=== PATIENT | male | born 1960 | race Hispanic/Latino ===

== ENCOUNTER 2025-06-21 21:10 | Inpatient (IN) | payer SELFPAY ==
[~2025-06-21] VITALS: Ht 152.6 cm; Wt 87.3 kg
--- NOTE | 2025-06-21 21:36 | EKG ---
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
--- NOTE | 2025-06-21 21:44 | NUR ---
SEPSIS ALERT CALLED OVERHEAD TO ROOM 17; PT WITH TEMP OF 101.6, PULSE OF 139
[2025-06-21 21:50] LABS: IMMATURE GRANULOCYTE ABSOLUTE 0.09 K/uL (0-1); NUCLEATED RED BLOOD CELLS 0.0 % (0.0-0.19); PLATELET COUNT (AUTO) 303 K/uL (130-400); RED BLOOD CELL COUNT(AUTO) 4.03 MIL/uL (4.50-6.20); RED CELL DISTRIBUTION WIDTH 15.1 % (11.0-15.5); WHITE BLOOD COUNT (AUTO) 18.3 K/uL (4.8-10.8)
[2025-06-21] MEDS: [UNRECOGNIZED DRUG - OTHER] IV ONE (21:50)
[2025-06-21 22:00] LABS: CREATININE 1.7 mg/dL (0.5-1.3); GLOMERULAR FILTR. RATE CALC 44.0 mL/min (>90); GLUCOSE,RANDOM 310.0 mg/dL (70-105); SODIUM SERUM 127.0 mmol/L (136-145); UREA NITROGEN, BLOOD 13.0 mg/dL (7-18)
[2025-06-21 22:11] LABS: CREATINE KINASE, TOTAL 41.0 U/L (21-232)
--- NOTE | 2025-06-21 22:28 | ERN ---
ED Note History of Present Illness Stated Complaint: C/O URINARY RETENTION WITH FEVER Chief Complaint: Urinary Retention Time Seen by MD: 21:13 Time Seen by Midlevel: 21:13 Dictation: The patient is a 65-year-old male with a history of diabetes on metformin a who presents to the emergency department with complaints of a burning urination and decreased urine output onset yesterday. Patient reports he had an episode of nonbloody vomiting yesterday. Denies fevers but patient was febrile during triage. Denies any flank pain or abdominal pain. Allergies: Coded Allergies: No Known Allergies (Unverified Allergy, Unknown, 06/21/25) Past Medical History Past Medical History: Diabetes-Type II, Hypertension Surgical History: Other RN Note Reviewed/Agreed w/PFSH: Yes Review of System Dictation Constitutional: Negative for and weight loss positive for fever, chills Eyes: Negative for injury, pain,redness, and discharge ENT: Negative for injury,pain or swelling Cardiovascular: Negative for chest pain, palpitations, and edema Respiratory: Negative for shortness of breath, cough, and wheezing, Abdomen/GI: Negative for abdominal pain, nausea, vomiting, diarrhea, and constipation Back: Negative for injury and pain : Positive for burning urination MS/Extremity: Negative for injury and deformity Skin: Negative for rash, and discoloration Neuro: Negative for headache, weakness, numbness, tingling, and seizure Psych: Negative for suicide ideation, homicidal ideation, and hallucinations Initial Vital Sign VS Vital Signs Date Time Temp Pulse Resp B/P (MAP) Pulse Ox O2 Delivery O2 Flow Rate FiO2 06/21/25 21:12 101.7 139 20 152/68 97 Room Air 06/21/25 22:24 0 21 Physical Exam Dictation Vital Signs reviewed General Appearance: Alert, oriented x 3, no acute distress, well developed, nourished. Head and Face: non-traumatic. Eyes: PERRL, pink conjunctivas, eyelid no trauma, anterior chamber with arcus senilis. Ears: Pinnas intact and no signs of trauma or erythema ear canals clear and no discharge TM no erythema Nose: No discharge, no bleeding. Oropharynx: Mouth normal, tongue pink. pharynx clear,no erythema, tonsils no exudates, no abscesses noted, mucous membrane moist Neck: Supple, non-tender, no thyromegaly, no masses, no JVD, no bruits Breast:Deferred Chest:No tenderness, no crepitus, no paradoxical movement, no retractions Lungs:Clear, well-ventilated, symmetric, no rales, no wheezing, no rhonchi, no stridor, good breath sounds bilaterally Heart: Regular rate, regular rhythm, no murmur, no gallops Vascular: no peripheral edema, Abdomen: Soft, positive bowel sounds, nondistended, no guarding, nontender, no rebound, no masses no hepatomegaly, no splenomegaly, no Marquez's sign, no hernias. Rectal: Deferred Genital: Deferred Neurological: Normal speech, motor function intact, sensory function intact Musculoskeletal: Neck nontender, full range of motion, back nontender, full range of motion, Extremities: nontender, full range of motion Skin: Color pink, dry, no turgor, no rash, no lacerations, no abrasions, no contusions. Lymphatic: Deferred Results (Laboratory/Radiology) Laboratory/Radiology Laboratory Tests Test 06/21/25 21:37 06/21/25 23:12 White Blood Count 18.3 K/uL (4.8-10.8) H Red Blood Count 4.03 MIL/uL (4.50-6.20) L Hemoglobin 10.0 g/dL (14.0-18.0) L Hematocrit 31.4 % (42-54) L Mean Corpuscular Volume 77.9 fL (79-99) L Mean Corpuscular Hemoglobin 24.8 pg (27.0-33.0) L Mean Corpuscular Hemoglobin Concent 31.8 g/dL (32.0-36.0) L Red Cell Distribution Width 15.1 % (11.0-15.5) Platelet Count 303 K/uL (130-400) Mean Platelet Volume 9.6 fL (7.5-10.5) Immature Granulocyte % (Auto) 0.5 % (0-1) Neutrophils (%) (Auto) 80.7 % (40.0-77.0) H Lymphocytes (%) (Auto) 8.8 % (21.0-51.0) L Monocytes (%) (Auto) 8.7 % (3.0-13.0) Eosinophils (%) (Auto) 1.0 % (0.0-8.0) Basophils (%) (Auto) 0.3 % (0.0-5.0) Neutrophils # (Auto) 14.8 K/uL (1.8-7.7) H Lymphocytes # (Auto) 1.6 K/uL (1.0-4.8) Monocytes # (Auto) 1.6 K/uL (0.1-1.0) H Eosinophils # (Auto) 0.19 K/uL (0.00-0.70) Basophils # (Auto) 0.05 K/uL (0.00-0.20) Absolute Immature Granulocyte (auto 0.09 K/uL (0-1) Nucleated Red Blood Cells 0.0 % (0.0-0.19) White Cell Morphology Comment See comments Red Blood Cell Morphology ANISO 1+ Sodium Level 127 mmol/L (136-145) L Potassium Level 4.3 mmol/L (3.5-5.1) Chloride Level 90 mmol/L (101-111) *L Carbon Dioxide Level 24 mmol/L (21-32) Blood Urea Nitrogen 13 mg/dL (7-18) Creatinine 1.7 mg/dL (0.5-1.3) H Glomerular Filtration Rate Calc 44 mL/min (>90) Random Glucose 310 mg/dL (70-105) H Lactic Acid Level 6.1 mmol/L (0.8-2.5) H Total Calcium 9.3 mg/dL (8.5-10.1) Total Creatine Kinase 41 U/L (21-232) Troponin I High Sensitivity 8 ng/L (4-75) Urine Color LIGHT-YELLOW (YELLOW) Urine Appearance CLOUDY (CLEAR) H Urine pH 6.5 (5.0-8.0) Urine Specific [place] 1.011 (1.001-1.031) Urine Protein 10 mg/dL (NEGATIVE) H Urine Glucose (UA) >=1000 mg/dL (NEGATIVE) H Urine Ketones NEGATIVE mg/dL (NEGATIVE) Urine Occult Blood MODERATE (NEGATIVE) H Urine Nitrate NEGATIVE (NEGATIVE) Urine Bilirubin NEGATIVE mg/dL (NEGATIVE) Urine Urobilinogen 0.2 mg/dL (0.2-1.0) Urine Leukocyte Esterase 500 [place]/uL (NEGATIVE) H Urine RBC 26-50 /HPF (0-1) H Urine WBC TNTC /HPF (0-1) H Urine Squamous Epithelial Cells RARE /HPF (0-2) Urine Bacteria None /HPF (None Seen) REASON: sob ORDERING PHYSICIAN: BILL PARADA ON SITE NURSE PROCEDURE: CXR1VW - CHEST 1VW EXAM: CR Chest, 1 View. CLINICAL HISTORY: sob COMPARISON: None provided. FINDINGS: LUNGS: There is no mass, infiltrate, or acute pulmonary abnormality. PLEURAL SPACES: No pleural effusion or pneumothorax. MEDIASTINUM: The cardiomediastinal silhouette is within normal limits. BONES: No acute osseous abnormality. IMPRESSION: No acute cardiopulmonary pathology is evident. /[place] REASON: ABD PAIN, urinary retention ORDERING PHYSICIAN: BILL PARADA ON SITE NURSE PROCEDURE: ABD PEL WO - CT ABDOMEN/PELVIS W/O CONTRAST EXAM: CT Abdomen and Pelvis Without Intravenous Contrast CLINICAL HISTORY: 65 year old male with abdominal pain and urinary retention. TECHNIQUE: Axial computed tomography images of the abdomen and pelvis without intravenous contrast. Dose reduction technique was used including one or more of the following: automated exposure control, adjustment of mA and kV according to patient size, and/or iterative reconstruction. CONTRAST: NONE COMPARISON: None provided. FINDINGS: LUNG BASES: No basilar airspace consolidation or pleural effusion. LIVER: Unremarkable. GALLBLADDER AND BILE DUCTS: Unremarkable. No calcified stone. No ductal dilation. PANCREAS: Unremarkable. SPLEEN: Unremarkable. ADRENAL GLANDS: Unremarkable. KIDNEYS, URETERS, AND BLADDER: Nonspecific bilateral perinephric fat stranding. No hydronephrosis or nephrolithiasis. No ureteral or bladder calculi. No obstructing ureteral stone. STOMACH AND BOWEL: No obstruction. No wall thickening. No CT evidence of colitis or acute diverticulitis. APPENDIX: No CT evidence for appendicitis. PERITONEUM: No free fluid. No free air. LYMPH NODES: No lymphadenopathy. REPRODUCTIVE: Unremarkable as visualized. VASCULATURE: No aortic aneurysm. ABDOMINAL WALL AND SOFT TISSUES: Unremarkable. BONES: Moderate degenerative changes in the lumbar spine. No fracture or suspicious osseous abnormality. IMPRESSION: 1. No acute intra-abdominal or pelvic abnormality related to the clinical history of abdominal pain and urinary retention. /[place] Labs Reviewed?: Yes EKG: (+) rhythm (Sinus tachycardia) EKG Comment: Date:06/21/2025 Time:2129 Ventricular rate:131 [place] interval:155 QRS duration:85 QT/QTc:284/419 EKG interpretation: Sinus tachycardia Reviewed by ED Attending no STEMI ED Course ED Course Orders Procedure Category Date Status Time 12 Lead Ekg Tracing- EKG 06/21/25 Complete Technical 21:21 Cbc With Differential LAB 06/21/25 Complete 21:21 Blood Cult BASIA 06/21/25 In Process 21:21 Urinalysis Profile LAB 06/21/25 Complete 21:21 Acetaminophen 500mg PHA 06/21/25 Complete Tab (Tylenol 500mg T 21:30 0.9%Nacl 1000ml (Ns PHA 06/21/25 Complete 1000ml) 21:30 Creatine Kinase, Total LAB 06/21/25 Complete 21:21 Troponin I High LAB 06/21/25 Complete Sensitivity 21:21 Lactic Acid LAB 06/21/25 Complete 21:21 Ceftriaxone 2gm Vial PHA 06/21/25 Complete (Rocephin 2gm Inj) 21:30 Basic Metabolic Panel LAB 06/21/25 Complete 21:21 Nurse Driven Ann CHHAYA 06/21/25 In Process Removal Pro 21:24 Ct Abdomen/Pelvis W/O CT 06/21/25 Resulted Contrast 21:28 Chest 1vw RAD 06/21/25 Resulted 22:01 Morphine 4mg Syg PHA 06/21/25 Complete (Morphine 4mg Syg) 22:30 Ondansetron 4mg Inj PHA 06/21/25 Complete (Zofran 4mg Inj) 22:30 Culture Urine BASIA 06/21/25 In Process 23:23 Admit Orders ADM 06/21/25 Transmitted 23:44 Edm Admit Bridge Order ADM 06/21/25 Transmitted 23:58 Vital Signs Date Time Temp Pulse Resp B/P (MAP) Pulse Ox O2 Delivery O2 Flow Rate FiO2 06/21/25 23:36 98.6 100 17 106/52 96 Room Air* 0 06/21/25 22:24 116 18 172/69 99 Room Air* 0 06/21/25 21:50 100.9 06/21/25 21:12 101.7 139 20 152/68 97 Room Air Medical Decision Making MDM MDM: The patient is a 65-year-old male with a history of diabetes on metformin a who presents to the emergency department with complaints of a burning urination and decreased urine output onset yesterday. Patient reports he had an episode of nonbloody vomiting yesterday. Denies fevers but patient was febrile during triage. Denies any flank pain or abdominal pain. Patient reports he had problems with urinary retention in the past and they gave him tamsulosin but he stopped taking it. CBC showed leukocytosis, mild normocytic anemia, chemistry showed sodium of 127, chloride of 90, creatinine of 1.7, lactic acid of 6.1, glucose of 310. Urinalysis positive for leukocyte esterase. CT abdomen showed nonspecific bilateral perinephric fat stranding, no hydronephrosis or nephrolithiasis. No acute intra-abdominal pelvic abnormality patient will be admitted for further evaluation and management. Differential diagnosis: UTI, pyelonephritis, sepsis, acute kidney injury, uri nary retention Comorbidities: Diabetes, hypertension, BPH Tests considered and not ordered secondary to shared decision making include: none Previous outside records reviewed: none Risk of complication and/or morbidity or mortality of patient management: The patient meets criteria for admission. Need for emergency major/minor surgery: No There are no social concerns with this patient. I independently interpreted the tests I ordered (labs, urinalysis, etc.). I discussed the case with the hospitalist for admission. Rob NUNN who accepts admission. I discussed the case with the following specialists: none. Historian: pateint. I independently interpreted imaging studies and EKGs that I ordered (US, CT, XR, EKG, etc.). External chart review: none. Medical management and examination interpretation discussions were had by me with other qualified healthcare professionals as indicated for the patient's care. Critical Care Note Critical Time: other (36) Comment(s) Total critical care time was 36 minutes. Excluding time for procedures. Management of critically ill patient with concern for acute decompensation. Management included interpretation of laboratory values and imaging, hemodynamics, time for consultation with consultants and admitting physician. DX & DISP Disposition: Inpatient Decision to Admit Date: Jun 21, 2025 Decision to Admit Time: 23:44 Departure Impression: Primary Impression: Septic shock Additional Impressions: Complicated UTI (urinary tract infection), Leukocytosis, ELENA (acute kidney injury), Elevated lactic acid level, Uncontrolled diabetes mellitus with hyperglycemia, Hypochloremia Condition: Stable Referrals: ERNESTO HEATON MD (PCP) I have reviewed the case, and I agree with, Diagnosis and Plan PARADA,BILL [facility] Jun 21, 2025 22:28
--- NOTE | 2025-06-21 22:57 | HMCIMG ---
EXAM: CR Chest, 1 View. CLINICAL HISTORY: sob COMPARISON: None provided. FINDINGS: LUNGS: There is no mass, infiltrate, or acute pulmonary abnormality. PLEURAL SPACES: No pleural effusion or pneumothorax. MEDIASTINUM: The cardiomediastinal silhouette is within normal limits. BONES: No acute osseous abnormality. IMPRESSION: No acute cardiopulmonary pathology is evident. /[place]
--- NOTE | 2025-06-21 23:15 | HMCIMG ---
EXAM: CT Abdomen and Pelvis Without Intravenous Contrast CLINICAL HISTORY: 65 year old male with abdominal pain and urinary retention. TECHNIQUE: Axial computed tomography images of the abdomen and pelvis without intravenous contrast. Dose reduction technique was used including one or more of the following: automated exposure control, adjustment of mA and kV according to patient size, and/or iterative reconstruction. CONTRAST: NONE COMPARISON: None provided. FINDINGS: LUNG BASES: No basilar airspace consolidation or pleural effusion. LIVER: Unremarkable. GALLBLADDER AND BILE DUCTS: Unremarkable. No calcified stone. No ductal dilation. PANCREAS: Unremarkable. SPLEEN: Unremarkable. ADRENAL GLANDS: Unremarkable. KIDNEYS, URETERS, AND BLADDER: Nonspecific bilateral perinephric fat stranding. No hydronephrosis or nephrolithiasis. No ureteral or bladder calculi. No obstructing ureteral stone. STOMACH AND BOWEL: No obstruction. No wall thickening. No CT evidence of colitis or acute diverticulitis. APPENDIX: No CT evidence for appendicitis. PERITONEUM: No free fluid. No free air. LYMPH NODES: No lymphadenopathy. REPRODUCTIVE: Unremarkable as visualized. VASCULATURE: No aortic aneurysm. ABDOMINAL WALL AND SOFT TISSUES: Unremarkable. BONES: Moderate degenerative changes in the lumbar spine. No fracture or suspicious osseous abnormality. IMPRESSION: 1. No acute intra-abdominal or pelvic abnormality related to the clinical history of abdominal pain and urinary retention. /[place]
[2025-06-21 23:22] LABS: APPEARANCE,URINE CLOUDY (CLEAR); GLUCOSE, URINE (UA) >=1000 mg/dL (NEGATIVE); LEUKOCYTE ESTERASE ,URINE 500 Leu/uL (NEGATIVE); NITRATE,URINE NEGATIVE (NEGATIVE); OCCULT BLOOD,URINE MODERATE (NEGATIVE)
[2025-06-21 23:23] LABS: ADD UA MICROSCOPIC YES
[2025-06-21 23:24] LABS: SQUAMOUS EPITHELIAL CELL,UR RARE /HPF (0-2)
--- NOTE | 2025-06-21 23:45 | HP ---
History of Present Illness Reason for Visit: fever History of Present Illness Mr. Mendez is a 65-year-old male that was seen and examined today on 06/21/2025. Patient is a good historian of personal health Patient states that he came to the emergency department with a chief complaint of urinary retention. Onset was 06/20/2025. Location is genital. Duration is on and off. Character is described as, "like it would hurt when I pee and also I would only get little drops. "There was no alleviating factors. Symptoms are aggravated with voiding. Patient denies any associated chest pain or shortness and breath. Today in the emergency department WBCs 18.3, left shift neutrophils 80.7%, creatinine 1.7, glucose 310 mg/dL, urinalysis positive for leukocyte esterase and WBCs too many to count per high-powered microscopy field. Add itionally patient presented with a temperature of 101.7, heart rate 139, WBCs 18.3 and identified source of infection being urine. Patient met clinical sepsis criteria. Past Medical History ADDITIONAL PAST MEDICAL HISTORY: [Diabetes mellitius type2, hypertension, hyperlipidemia] SOCIAL HISTORY: [Negative for smoking. Patient drinks once a week usually three beers that are 12 oz each. Patient denies drug use. Patient lives with his , Fany Mendez. Patient is typically independent of all his ADLs. Patient denies difficulty pain is bills.] SURGICAL HISTORY: [Left renal lithotripsy, bilateral eye surgery] Review of Systems General: No Fever, No Chills, No Night Sweats, No Fatigue, No Malaise, No Appetite, No Other HEENT: No Head Aches, No Visual Changes, No Eye Pain, No Ear Pain, No Dysphasia, No Sinus Congestion, No Post Nasal Drip, No Sore Throat, No Other Pulmonary: No Dyspnea, No Cough, No Pleuritic Chest Pain, No Other Cardiovascular: No: Chest Pain, Palpitations, Orthopnea, Paroxysmal Noc. Dyspnea, Edema, Lt Headedness, Other Gastrointestinal: No: Nausea, Vomiting, Abdominal Pain, Diarrhea, Constipation, Melena, Hematochezia, Other Genitourinary: Dysuria; No Frequency, No Incontinence, No Hematuria; Retention; No Other Musculoskeletal: No: other, neck pain, shoulder pain, arm pain, back pain, hand pain, leg pain, foot pain Skin: No Urticaria, No Rash, No Other Neurological: No: Weakness, Numbness, Incoordination, Change in speech, Confusion, Seizures, Other Allergies: Coded Allergies: No Known Allergies (Unverified Allergy, Unknown, 06/21/25) Exam Vital Signs Vital Signs Date Time Temp Pulse Resp B/P (MAP) Pulse Ox O2 Delivery O2 Flow Rate FiO2 06/21/25 23:36 98.6 100 17 106/52 96 Room Air* 0 21 General Appearance: Alert, Oriented X3, Cooperative, mild distress HEENT: Atraumatic, EOMI Respiratory: Clear to auscultation, Normal air movement, NL respiratory effort Cardiovascular: Regular rate, Regular rhythm, Normal S1, Normal S2 Abdominal: Normal bowel sounds, Soft, No tenderness Extremities: No edema Skin: No significant lesion Neuro: Normal gait, Normal speech, Strength at 5/5 X4 ext, Sensation intact, Cranial nerves 3-12 NL Psych/Mental Status: Mental status NL, Mood NL, Thoughts/Content NL Assessment/Plan ASSESSMENT: [ Sepsis, POA Urinary tract infection, POA Leukocytosis, POA Uncontrolled Diabetes mellitius type2, POA ELENA versus CKD, POA Lactic acidosis, POA Hypertension Hyperlipidemia] PLAN: [ Admit patient to medical floor as inpatient status. Place patient on telemetry monitoring. Sepsis, leukocytosis, lactic acidosis, urinary tract infection: Patient received fluid resuscitation with 0.9% NS 30 mL/kg Empiric antibiotic therapy with Zosyn. Check procalcitonin, follow up with the results Check blood culture, follow up with the results Check urine culture, follow up with the results Repeat patient's lactic acid in a.m. As-needed Tylenol for fever Diabetes mellitus type 2: Check hemoglobin A1c in a.m. Glucometer checks a.c. and HS 1800 ADA diet Humulin R sliding scale Acute kidney injury: Lactated Ringer's at 75 mL/HR IV fluid maintenance therapy Calculate FENA Check urine sodium, creatinine, osmolality Avoid nephrotoxic agents when possible Renally dose all medications when possible Consider consulting Nephrology service if any worsening renal function or evidence of ATN. Monitor patient's labs. Weight patient daily. Monitor intake and output. Hypertension, hyperlipidemia: Consider resuming home medications once they have been reconciled. At time of admission home medications has been reconciled. For now: Hydralazine 10 mg IV every 4 hours for systolic blood pressure greater than 160 mmHg Atorvastatin 40 mg by mouth once daily GI prophylaxis, Protonix DVT prophylaxis, heparin ADVANCED CARE PLANNING 1. Which of the following were discussed? Hospice Care - Yes Therapeutic options - yes Advance Directives - Yes - patient states he does not have any advance directives in place at this time, however his Fany can make decisions for him if he becomes unable Other discussions - patient wishes to remain a full code at this time 2. Discussed with who? Patient 3. Voluntary nature of this service was explained to the patient? Yes 4. Amount of time spent - ___16 minutes____ 5. Reviewed by Physician? (if this service was performed by NPP) Yes This document was generated in part using voice recognition software, occasional wrong word or sound alike substitutions may have occurred due to the inherent limitations of voice recognition software. Read the chart carefully and recognize using context, where the substitutions have occurred. Although every effort was made to edit the content, weights and measures inspector and typing errors may occur ATTESTATION BY PHYSICIAN I have seen and examined the patient. I reviewed the documentation, medical decision making, and treatment plan as noted by the mid-level provider above. I agree with the findings and plan of care.] [facility] Jun 21, 2025 23:45
[2025-06-22] MEDS ORDERED: LACTULOSE 20 GM/30 ML UDCUP PO PRN (01:30)
[2025-06-22] MEDS: LACTATED RINGERS 1000ML 1,000 ML IV SCH (02:25)
[2025-06-22] MEDS: ZOSYN 3.375GM +NS 50ML IV SCH (03:06)
[2025-06-22 06:38] LABS: IMMATURE GRANULOCYTE ABSOLUTE 0.12 K/uL (0-1); NUCLEATED RED BLOOD CELLS 0.0 % (0.0-0.19); PLATELET COUNT (AUTO) 255 K/uL (130-400); RED BLOOD CELL COUNT(AUTO) 3.80 MIL/uL (4.50-6.20); RED CELL DISTRIBUTION WIDTH 15.2 % (11.0-15.5); WHITE BLOOD COUNT (AUTO) 16.4 K/uL (4.8-10.8)
[2025-06-22 06:46] LABS: CREATININE 1.5 mg/dL (0.5-1.3); GLOMERULAR FILTR. RATE CALC 51.0 mL/min (>90); GLUCOSE,RANDOM 164.0 mg/dL (70-105); PHOSPHORUS 3.1 mg/dL (2.5-4.9); SODIUM SERUM 130.0 mmol/L (136-145); UREA NITROGEN, BLOOD 12.0 mg/dL (7-18)
[2025-06-22 07:11] LABS: CREATININE,URINE RANDOM 75.79 mg/dL (30-135)
[2025-06-22] MEDS ORDERED: LISI20TA24 PO (08:53)
[2025-06-22] MEDS ORDERED: METF-445 PO (08:53)
[2025-06-22] MEDS ORDERED: TAMS-55 PO (08:55)
[2025-06-22] MEDS ORDERED: PRAV40TA62 PO (08:55)
[2025-06-22] MEDS ORDERED: AMLO-258 PO (08:55)
[2025-06-22] MEDS ORDERED: LINA5TAB PO (08:55)
[2025-06-22] MEDS: MAGNESIUM 2GM PREMIX 50ML 50 ML IV SCH (12:02)
--- NOTE | 2025-06-22 12:45 | PN ---
[facility] PROGRESS NOTE Date of Service: Jun 22, 2025 Time of Service: 12:33 SUBJECTIVE: [ ] Patient states that he came to the emergency department with a chief complaint of urinary retention. Onset was 06/20/2025. Location is genital. Duration is on and off. Character is described as, "like it would hurt when I pee and also I would only get little drops. "There was no alleviating factors. Symptoms are aggravated with voiding. Patient denies any associated chest pain or shortness and breath. Today in the emergency department WBCs 18.3, left shift neutrophils 80.7%, creatinine 1.7, glucose 310 mg/dL, urinalysis positive for leukocyte esterase and WBCs too many to count per high-powered microscopy field. Additionally patient presented with a temperature of 101.7, heart rate 139, WBCs 18.3 and identified source of infection being urine. Patient met clinical sepsis criteria. 06/22/25 patient remains in ED 17 T-max 99.7. Continues on broad-spectrum antibiotic. Culture blood cultures in process. Patient denied chest pain or shortness for breath. We will replace electrolytes as per protocol. REVIEW OF SYSTEMS CONSTITUTIONAL: Denies fevers, chills, or night sweats. No unintentional weight loss reported. NEUROLOGICAL: Denies headache, amaurosis fugax, motor weakness, sensory deficit, vertigo/spinning sensation, gait abnormalities, or tremors. ENT: No hearing loss, otalgia, otorrhea, rhinitis, rhinorrhea, hoarseness, or sore throat. CARDIOVASCULAR: Denies any exertional angina, dyspnea on exertion, orthopnea, paroxysmal nocturnal dyspnea, palpitations, life-threatening arrhythmias, claudication. PULMONARY: Denies any shortness of breath, cough, phlegm/sputum, hemoptysis, pleuritic chest pain. SLEEP: Denies morning headaches, daytime somnolence or napping. Denies difficulty falling asleep, staying asleep, waking from sleep. Denies knowledge of snoring. GASTROINTESTINAL: Denies any type of dysphagia to either liquids or solids. Denies nausea, vomiting, pyrosis, early satiety, abdominal pain, diarrhea, constipation, or changes in stool consistency or caliber. Denies coffee-ground emesis, hematemesis, hematochezia, or melanotic stools. GENITOURINARY: Denies frequency, urgency, nocturia, hematuria or incontinence (Storage/Irritative symptoms.) Low urinary stream, straining to void, urinary intermittency or hesitancy, splitting of the voiding stream, terminal dribbling. ENDOCRINOLOGIC: Denies polyuria, polydipsia, polyphagia or heat/cold intolerances. HEMATOLOGIC: Denies thrombophilia/previous clots, or coagulopathy/bleeding disorders. ONCOLOGIC: Denies personal history of malignancy. DERMATOLOGIC: Denies rashes or pruritus. PSYCHIATRIC: Denies any suicidal or homicidal ideation. Denies hallucinations. PHYSICAL EXAM GENERAL APPEARANCE: The patient is awake, alert, and oriented, in no acute cardiopulmonary distress. NEUROLOGICAL: Cranial nerves II-XII grossly intact. Motor is 5/5 in bilateral upper and lower extremities proximal to distal. No sensory deficits. HEENT: Face is symmetric. Pupils are equal and reactive. Extraocular movements are intact. NECK: Supple. No JVD. No thyromegaly. No submental, submandibular, pre- /postauricular, occipital or supraclavicular lymphadenopathy. CHEST: Normal chest expansion. No Telemetry. LUNGS: Absence of any rales, rhonchi or any wheezing. CARDIOVASCULAR: Regular. S1 and S2 normal. No appreciable rubs, murmurs or gallops. ABDOMEN: Soft, nontender, and nondistended. There is no rebound, voluntary guarding, or rigidity. : Deferred. No Ann. EXTREMITIES: Non-edematous and not cyanotic. No clubbing. Good capillary refill. SKIN: No skin breakdown. Vital Signs (last 8hr) Date Time Temp Pulse Resp B/P (MAP) Pulse Ox O2 Delivery O2 Flow Rate FiO2 06/22/25 12:13 99.0 97 15 122/61 97 Room Air* 0 21 06/22/25 08:35 99.7 06/22/25 07:46 99.7 105 18 140/65 98 Room Air* 0 21 06/22/25 04:40 98.8 100 18 124/53 97 Room Air* 0 21 LABS: Laboratory: Test 06/22/25 11:24 06/22/25 06:10 06/22/25 01:43 06/21/25 23:12 Range/Units Whole Blood Glucose 166 H 70-110 MG/DL White Blood Count 16.4 H 4.8-10.8 K/uL Red Blood Count 3.80 L 4.50-6.20 MIL/uL Hemoglobin 9.3 L 14.0-18.0 g/dL Hematocrit 29.4 L 42-54 % Mean Corpuscular Volume 77.4 L 79-99 fL Mean Corpuscular Hemoglobin 24.5 L 27.0-33.0 pg Mean Corpuscular Hemoglobin Concent 31.6 L 32.0-36.0 g/dL Red Cell Distribution Width 15.2 11.0-15.5 % Platelet Count 255 130-400 K/uL Mean Platelet Volume 9.8 7.5-10.5 fL Immature Granulocyte % (Auto) 0.7 0-1 % Neutrophils (%) (Auto) 84.0 H 40.0-77.0 % Lymphocytes (%) (Auto) 6.2 L 21.0-51.0 % Monocytes (%) (Auto) 8.6 3.0-13.0 % Eosinophils (%) (Auto) 0.3 0.0-8.0 % Basophils (%) (Auto) 0.2 0.0-5.0 % Neutrophils # (Auto) 13.7 H 1.8-7.7 K/uL Lymphocytes # (Auto) 1.0 1.0-4.8 K/uL Monocytes # (Auto) 1.4 H 0.1-1.0 K/uL Eosinophils # (Auto) 0.05 0.00-0.70 K/uL Basophils # (Auto) 0.04 0.00-0.20 K/uL Absolute Immature Granulocyte (auto 0.12 0-1 K/uL Nucleated Red Blood Cells 0.0 0.0-0.19 % Sodium Level 130 L 136-145 mmol/L Potassium Level 4.4 3.5-5.1 mmol/L Chloride Level 97 L 101-111 mmol/L Carbon Dioxide Level 28 21-32 mmol/L Blood Urea Nitrogen 12 7-18 mg/dL Creatinine 1.5 H 0.5-1.3 mg/dL Glomerular Filtration Rate Calc 51 >90 mL/min Random Glucose 164 H 70-105 mg/dL Hemoglobin A1c 7.1 H 4.0-6.0 % Estimated Average Glucose (eAG) 157 H 70-126 mg/dL Lactic Acid Level 1.2 0.8-2.5 mmol/L Total Calcium 8.4 L 8.5-10.1 mg/dL Phosphorus Level 3.1 2.5-4.9 mg/dL Magnesium Level 1.40 L 1.80-2.40 mg/dL Procalcitonin 0.17 0.05-0.5 ng/mL Urine Color LIGHT-YELLOW YELLOW Urine Appearance CLOUDY H CLEAR Urine pH 6.5 5.0-8.0 Urine Specific [place] 1.011 1.001-1.031 Urine Protein 10 H NEGATIVE mg/dL Urine Glucose (UA) >=1000 H NEGATIVE mg/dL Urine Ketones NEGATIVE NEGATIVE mg/dL Urine Occult Blood MODERATE H NEGATIVE Urine Nitrate NEGATIVE NEGATIVE Urine Bilirubin NEGATIVE NEGATIVE mg/dL Urine Urobilinogen 0.2 0.2-1.0 mg/dL Urine Leukocyte Esterase 500 H NEGATIVE [place]/uL Urine RBC 26-50 H 0-1 /HPF Urine WBC TNTC H 0-1 /HPF Urine Squamous Epithelial Cells RARE 0-2 /HPF Urine Bacteria None None Seen /HPF Urine Random Creatinine 75.79 30-135 mg/dL Urine Random Sodium 75 40-220 mmol/l Test 06/21/25 21:37 Range/Units White Cell Morphology Comment See comments Red Blood Cell Morphology ANISO 1+ Total Creatine Kinase 41 21-232 U/L Troponin I High Sensitivity 8 4-75 ng/L Current Medications Medications (Trade) Dose Ordered Sig/Peggy Route PRN Reason Start Time Stop Time Status Last Admin Dose Admin Acetaminophen (TYLenol 325MG TAB) 650 mg Q6H PRN PO TEMPERATURE GREATER THAN 101.5 06/22/25 01:30 07/22/25 01:29 06/22/25 08:35 650 MG Atorvastatin Calcium (LIPItor 40MG) 40 mg HS PO 06/22/25 21:00 07/22/25 20:59 Heparin Sodium (Porcine) (HEParin 5,000 UNIT VIAL) 5,000 unit BID SQ 06/22/25 09:00 07/22/25 08:59 06/22/25 08:37 5,000 UNIT Hydralazine HCl (APRESOLine 20MG INJ) 10 mg Q6H PRN IV For:SBP above 160;DBP above 90 06/22/25 01:30 07/22/25 01:29 Insulin Human Regular (humuLIN R 100 UNIT/ML 3ML) INSULIN SLIDING SCAL... ACHS SQ 06/22/25 07:30 07/22/25 07:29 Lactated Ringer's 1,000 ml @ 75 mls/hr [id number] IV 06/22/25 01:30 07/22/25 01:29 06/22/25 02:25 75 MLS/HR Lactulose (Constulose 20gm/ 30ml Udcup) 20 gm BID PRN PO CONSTIPATION 06/22/25 01:30 07/22/25 01:29 Magnesium Sulfate 50 ml @ 0 mls/hr PROTOCOL IV 06/22/25 11:30 07/22/25 11:29 06/22/25 12:02 24 MLS/HR Morphine Sulfate (morPHINE 4MG SYG) 2 mg Q4H PRN IVP SEVERE PAIN (7-10) 06/22/25 01:30 06/29/25 01:29 Ondansetron HCl (zoFRAN 4MG INJ) 4 mg Q6H PRN IV NAUSEA/VOMITING 06/22/25 01:30 07/22/25 01:29 Pantoprazole Sodium (PROTonix 40MG TAB) 40 mg DAILY PO 06/22/25 09:00 07/22/25 08:59 06/22/25 08:35 40 MG Piperacillin Sod/ Tazobactam Sod (Zosyn 3.375gm+NS 50ml) 3.375 gm Q8H IV 06/22/25 03:00 07/02/25 02:59 06/22/25 11:58 3.375 GM DIAGNOSTICS / RADIOLOGY: [ ] ASSESSMENT: Sepsis, POA Urinary tract infection, POA Leukocytosis, POA Uncontrolled Diabetes mellitius type2, POA ELENA versus CKD, POA Electrolyte derangement hyponatremia. Hypomagnesemia Lactic acidosis, POA Hypertension Hyperlipidemia] PLAN: [ ] Admit medical floor remain in ED 17 Sepsis, leukocytosis, lactic acidosis, urinary tract infection: IV fluids 75 mL/hour Antibiotics Empiric antibiotic therapy with Zosyn. Microbiology urine culture blood cultures in process Flomax 0.4 mg p.o. daily Diabetes mellitus type 2: A1c 7.1 Glucometer checks a.c. and HS 1800 ADA diet Humulin R sliding scale Acute kidney injury: Improving Lactated Ringer's at 75 mL/HR IV fluid maintenance therapy Avoid NSAIDs renal dose medication strict I&Os Home medications reconciled Hypertension, hyperlipidemia: Hydralazine 10 mg IV every 4 hours for systolic blood pressure greater than 160 mmHg Atorvastatin 40 mg by mouth once daily GI prophylaxis, Protonix DVT prophylaxis, heparin ATTESTATION BY PHYSICIAN I have seen and examined the patient. I reviewed the documentation, medical decision making, and treatment plan as noted by the mid-level provider above. I agree with the findings and plan of care. LIANNA GILLIAM MD, ELIZABETH NP Jun 22, 2025 12:45
[2025-06-22] MEDS ORDERED: MAGNESIUM 2GM PREMIX 50ML 50 ML IV SCH (13:00)
[2025-06-22] MEDS ORDERED: PoTASSium chl 10% ELIXIR 20MEQ 20 MEQ/15 ML UDCUP PO PRN (13:00)
[2025-06-22] MEDS ORDERED: MAGNESIUM 2GM PREMIX 50ML 50 ML IV PRN (13:00)
--- NOTE | 2025-06-22 15:18 | NUR ---
DcP; HOME Sw met pt and his Fany Mendez [phone]. Pt works as [employer], drives and remains independent of all his ADLS. uses no DME, HH or HD services. PCP is Daniel Lopez at [facility] for medical care and meds. pt and deny dc needs and will return home at ar Addendum: 06/22/25 at 1524 by MALIK LOPEZ Amended: Links added.
[2025-06-22 20:00] VITALS: BP 118/54; PULSE 105; RESP 20; TEMP 100.3; O2SAT 99
[2025-06-22 20:03] VITALS: TEMP 99.1
[2025-06-23] VITALS (7 sets, daily range): BP systolic 118–151; BP diastolic 46–75; PULSE 88–106; RESP 16–20; TEMP 98.5–100.4; O2SAT 93–99
[2025-06-23 04:52] LABS: IMMATURE GRANULOCYTE ABSOLUTE 0.06 K/uL (0-1); NUCLEATED RED BLOOD CELLS 0.0 % (0.0-0.19); PLATELET COUNT (AUTO) 256 K/uL (130-400); RED BLOOD CELL COUNT(AUTO) 3.55 MIL/uL (4.50-6.20); RED CELL DISTRIBUTION WIDTH 15.4 % (11.0-15.5); WHITE BLOOD COUNT (AUTO) 13.6 K/uL (4.8-10.8)
[2025-06-23 05:21] LABS: ASPARTATE AMINOTRANSFERASE 21.0 U/L (10-37); CREATININE 1.3 mg/dL (0.5-1.3); GLOMERULAR FILTR. RATE CALC 60.0 mL/min (>90); GLUCOSE,RANDOM 144.0 mg/dL (70-105); SODIUM SERUM 134.0 mmol/L (136-145); TOTAL PROTEIN, SERUM 6.6 g/dL (6.0-8.3); UREA NITROGEN, BLOOD 9.0 mg/dL (7-18)
[2025-06-23] MEDS ORDERED: NON-FORMULARY MEDICATION 1 EACH (Pravastatin Sodium 1 TAB) PO SCH (09:00)
[2025-06-23] MEDS: amLODIPine 5 MG TAB PO SCH (10:12)
[2025-06-23] MEDS: LISINOPRIL 20 MG TABLET PO SCH (10:12)
--- NOTE | 2025-06-23 10:15 | PN ---
[facility] PROGRESS NOTE Date of Service: Jun 23, 2025 Time of Service: 10:12 SUBJECTIVE: [ ] Patient states that he came to the emergency department with a chief complaint of urinary retention. Onset was 06/20/2025. Location is genital. Duration is on and off. Character is described as, "like it would hurt when I pee and also I would only get little drops. "There was no alleviating factors. Symptoms are aggravated with voiding. Patient denies any associated chest pain or shortness and breath. Today in the emergency department WBCs 18.3, left shift neutrophils 80.7%, creatinine 1.7, glucose 310 mg/dL, urinalysis positive for leukocyte esterase and WBCs too many to count per high-powered microscopy field. Additionally patient presented with a temperature of 101.7, heart rate 139, WBCs 18.3 and identified source of infection being urine. Patient met clinical sepsis criteria. 06/22/25 patient remains in ED 17 T-max 99.7. Continues on broad-spectrum antibiotic. Culture blood cultures in process. Patient denied chest pain or shortness for breath. We will replace electrolytes as per protocol. 06/23/25 patient was seen earlier patient remain in ED 17. T-max 99.3. Continues on Zosyn IV ID on board. Waiting for final cultures. REVIEW OF SYSTEMS CONSTITUTIONAL: Denies fevers, chills, or night sweats. No unintentional weight loss reported. NEUROLOGICAL: Denies headache, amaurosis fugax, motor weakness, sensory deficit, vertigo/spinning sensation, gait abnormalities, or tremors. ENT: No hearing loss, otalgia, otorrhea, rhinitis, rhinorrhea, hoarseness, or sore throat. CARDIOVASCULAR: Denies any exertional angina, dyspnea on exertion, orthopnea, paroxysmal nocturnal dyspnea, palpitations, life-threatening arrhythmias, claudication. PULMONARY: Denies any shortness of breath, cough, phlegm/sputum, hemoptysis, pleuritic chest pain. SLEEP: Denies morning headaches, daytime somnolence or napping. Denies difficulty falling asleep, staying asleep, waking from sleep. Denies knowledge of snoring. GASTROINTESTINAL: Denies any type of dysphagia to either liquids or solids. Denies nausea, vomiting, pyrosis, early satiety, abdominal pain, diarrhea, constipation, or changes in stool consistency or caliber. Denies coffee-ground emesis, hematemesis, hematochezia, or melanotic stools. GENITOURINARY: Denies frequency, urgency, nocturia, hematuria or incontinence (Storage/Irritative symptoms.) Low urinary stream, straining to void, urinary intermittency or hesitancy, splitting of the voiding stream, terminal dribbling. ENDOCRINOLOGIC: Denies polyuria, polydipsia, polyphagia or heat/cold intolerances. HEMATOLOGIC: Denies thrombophilia/previous clots, or coagulopathy/bleeding disorders. ONCOLOGIC: Denies personal history of malignancy. DERMATOLOGIC: Denies rashes or pruritus. PSYCHIATRIC: Denies any suicidal or homicidal ideation. Denies hallucinations. PHYSICAL EXAM GENERAL APPEARANCE: The patient is awake, alert, and oriented, in no acute cardiopulmonary distress. NEUROLOGICAL: Cranial nerves II-XII grossly intact. Motor is 5/5 in bilateral upper and lower extremities proximal to distal. No sensory deficits. HEENT: Face is symmetric. Pupils are equal and reactive. Extraocular movements are intact. NECK: Supple. No JVD. No thyromegaly. No submental, submandibular, pre- /postauricular, occipital or supraclavicular lymphadenopathy. CHEST: Normal chest expansion. No Telemetry. LUNGS: Absence of any rales, rhonchi or any wheezing. CARDIOVASCULAR: Regular. S1 and S2 normal. No appreciable rubs, murmurs or gallops. ABDOMEN: Soft, nontender, and nondistended. There is no rebound, voluntary guarding, or rigidity. : Deferred. No Ann. EXTREMITIES: Non-edematous and not cyanotic. No clubbing. Good capillary refill. SKIN: No skin breakdown. Vital Signs (last 8hr) Date Time Temp Pulse Resp B/P (MAP) Pulse Ox O2 Delivery O2 Flow Rate FiO2 06/23/25 07:41 99 Room Air* 0 21 06/23/25 04:00 99.1 99 20 151/75 96 Room Air LABS: Laboratory: Test 06/23/25 04:30 06/22/25 20:16 06/22/25 06:10 06/21/25 23:12 Range/Units White Blood Count 13.6 H 4.8-10.8 K/uL Red Blood Count 3.55 L 4.50-6.20 MIL/uL Hemoglobin 8.6 L 14.0-18.0 g/dL Hematocrit 26.8 L 42-54 % Mean Corpuscular Volume 75.5 L 79-99 fL Mean Corpuscular Hemoglobin 24.2 L 27.0-33.0 pg Mean Corpuscular Hemoglobin Concent 32.1 32.0-36.0 g/dL Red Cell Distribution Width 15.4 11.0-15.5 % Platelet Count 256 130-400 K/uL Mean Platelet Volume 9.8 7.5-10.5 fL Immature Granulocyte % (Auto) 0.4 0-1 % Neutrophils (%) (Auto) 80.0 H 40.0-77.0 % Lymphocytes (%) (Auto) 9.0 L 21.0-51.0 % Monocytes (%) (Auto) 8.9 3.0-13.0 % Eosinophils (%) (Auto) 1.5 0.0-8.0 % Basophils (%) (Auto) 0.2 0.0-5.0 % Neutrophils # (Auto) 10.9 H 1.8-7.7 K/uL Lymphocytes # (Auto) 1.2 1.0-4.8 K/uL Monocytes # (Auto) 1.2 H 0.1-1.0 K/uL Eosinophils # (Auto) 0.20 0.00-0.70 K/uL Basophils # (Auto) 0.03 0.00-0.20 K/uL Absolute Immature Granulocyte (auto 0.06 0-1 K/uL Nucleated Red Blood Cells 0.0 0.0-0.19 % Sodium Level 134 L 136-145 mmol/L Potassium Level 3.9 3.5-5.1 mmol/L Chloride Level 101 101-111 mmol/L Carbon Dioxide Level 26 21-32 mmol/L Blood Urea Nitrogen 9 7-18 mg/dL Creatinine 1.3 0.5-1.3 mg/dL Glomerular Filtration Rate Calc 60 >90 mL/min Random Glucose 144 H 70-105 mg/dL Total Calcium 8.4 L 8.5-10.1 mg/dL Magnesium Level 2.00 1.80-2.40 mg/dL Total Bilirubin 0.4 0.2-1.0 mg/dL Aspartate Amino Transf (AST/SGOT) 21 10-37 U/L Alanine Aminotransferase (ALT/SGPT) 17 12-78 U/L Alkaline Phosphatase 59 50-136 U/L C-Reactive Protein, Quantitative 219.60 H 0.5-3.0 mg/L Total Protein 6.6 6.0-8.3 g/dL Albumin 3.0 L 3.5-5.0 g/dL Procalcitonin 0.19 0.05-0.5 ng/mL Whole Blood Glucose 186 H 70-110 MG/DL Hemoglobin A1c 7.1 H 4.0-6.0 % Estimated Average Glucose (eAG) 157 H 70-126 mg/dL Lactic Acid Level 1.2 0.8-2.5 mmol/L Phosphorus Level 3.1 2.5-4.9 mg/dL Urine Color LIGHT-YELLOW YELLOW Urine Appearance CLOUDY H CLEAR Urine pH 6.5 5.0-8.0 Urine Specific [place] 1.011 1.001-1.031 Urine Protein 10 H NEGATIVE mg/dL Urine Glucose (UA) >=1000 H NEGATIVE mg/dL Urine Ketones NEGATIVE NEGATIVE mg/dL Urine Occult Blood MODERATE H NEGATIVE Urine Nitrate NEGATIVE NEGATIVE Urine Bilirubin NEGATIVE NEGATIVE mg/dL Urine Urobilinogen 0.2 0.2-1.0 mg/dL Urine Leukocyte Esterase 500 H NEGATIVE [place]/uL Urine RBC 26-50 H 0-1 /HPF Urine WBC TNTC H 0-1 /HPF Urine Squamous Epithelial Cells RARE 0-2 /HPF Urine Bacteria None None Seen /HPF Urine Osmolality 392 50-1200 mOsm/kg Urine Random Creatinine 75.79 30-135 mg/dL Urine Random Sodium 75 40-220 mmol/l Test 06/21/25 21:37 Range/Units White Cell Morphology Comment See comments Red Blood Cell Morphology ANISO 1+ Total Creatine Kinase 41 21-232 U/L Troponin I High Sensitivity 8 4-75 ng/L Current Medications Medications (Trade) Dose Ordered Sig/Peggy Route PRN Reason Start Time Stop Time Status Last Admin Dose Admin Acetaminophen (TYLenol 325MG TAB) 650 mg Q6H PRN PO TEMPERATURE GREATER THAN 101.5 06/22/25 01:30 07/22/25 01:29 06/22/25 19:03 650 MG Amlodipine Besylate (NorvASC 5MG TAB) 10 mg DAILY PO 06/23/25 09:00 07/23/25 08:59 Atorvastatin Calcium (LIPItor 40MG) 40 mg HS PO 06/22/25 21:00 07/22/25 20:59 06/22/25 21:25 40 MG Heparin Sodium (Porcine) (HEParin 5,000 UNIT VIAL) 5,000 unit BID SQ 06/22/25 09:00 07/22/25 08:59 06/22/25 21:25 5,000 UNIT Hydralazine HCl (APRESOLine 20MG INJ) 10 mg Q6H PRN IV For:SBP above 160;DBP above 90 06/22/25 01:30 07/22/25 01:29 Insulin Human Regular (humuLIN R 100 UNIT/ML 3ML) INSULIN SLIDING SCAL... ACHS SQ 06/22/25 07:30 07/22/25 07:29 06/22/25 21:29 2 UNIT Lactated Ringer's 1,000 ml @ 75 mls/hr [id number] IV 06/22/25 01:30 07/22/25 01:29 06/23/25 04:31 75 MLS/HR Lactulose (Constulose 20gm/ 30ml Udcup) 20 gm BID PRN PO CONSTIPATION 06/22/25 01:30 07/22/25 01:29 Linagliptin (TradJENTA) 5 mg DAILY PO 06/23/25 09:00 07/23/25 08:59 Lisinopril (Prinivil 20mg) 20 mg DAILY PO 06/23/25 09:00 07/23/25 08:59 Magnesium Sulfate 50 ml @ 0 mls/hr PROTOCOL IV 06/22/25 11:30 07/22/25 11:29 06/22/25 12:02 24 MLS/HR Magnesium Sulfate 50 ml @ 0 mls/hr PROTOCOL IV 06/22/25 13:00 06/22/25 12:43 DC Magnesium Sulfate 50 ml @ 0 mls/hr PROTOCOL PRN IV low mag level 06/22/25 13:00 06/22/25 12:43 DC Miscellaneous Medication (Pravastatin Sodium ) 1 tab DAILY PO 06/23/25 09:00 06/22/25 12:52 DC Morphine Sulfate (morPHINE 4MG SYG) 2 mg Q4H PRN IVP SEVERE PAIN (7-10) 06/22/25 01:30 06/29/25 01:29 Ondansetron HCl (zoFRAN 4MG INJ) 4 mg Q6H PRN IV NAUSEA/VOMITING 06/22/25 01:30 07/22/25 01:29 Pantoprazole Sodium (PROTonix 40MG TAB) 40 mg DAILY PO 06/22/25 09:00 07/22/25 08:59 06/22/25 08:35 40 MG Piperacillin Sod/ Tazobactam Sod (Zosyn 3.375gm+NS 50ml) 3.375 gm Q8H IV 06/22/25 03:00 07/02/25 02:59 06/23/25 04:31 3.375 GM Potassium Chloride 100 ml @ 100 mls/hr AD PRN IV POTASSIUM PROTOCOL 06/22/25 13:00 07/22/25 12:59 Potassium Chloride (K-Dur/Klor-Con 20meq) 20 meq AD PRN PO POTASSIUM PROTOCOL 06/22/25 13:00 07/22/25 12:59 Potassium Chloride (KCl 10% Elixir 20meq/15ml) 20 meq AD PRN PO POTASSIUM PROTOCOL 06/22/25 13:00 07/22/25 12:59 Tamsulosin HCl (FloMAX) 0.4 mg DAILY PO 06/23/25 09:00 07/23/25 08:59 DIAGNOSTICS / RADIOLOGY: [ ] ASSESSMENT: Sepsis, POA Urinary tract infection, POA Leukocytosis, POA Uncontrolled Diabetes mellitius type2, POA ELENA versus CKD, POA resolved Electrolyte derangement hyponatremia. Hypomagnesemia Lactic acidosis, POA Hypertension Hyperlipidemia] PLAN: [ ] Admit medical floor remain in ED 17 Sepsis, leukocytosis, lactic acidosis, urinary tract infection: IV fluids 75 mL/hour Antibiotics Empiric antibiotic therapy with Zosyn. Microbiology urine culture for final blood cultures 4- Flomax 0.4 mg p.o. daily Diabetes mellitus type 2: A1c 7.1 Glucometer checks a.c. and HS 1800 ADA diet Humulin R sliding scale Acute kidney injury: Resolved Lactated Ringer's at 75 mL/HR IV fluid maintenance therapy Avoid NSAIDs renal dose medication strict I&Os Home medications reconciled Hypertension, hyperlipidemia: Hydralazine 10 mg IV every 4 hours for systolic blood pressure greater than 160 mmHg Atorvastatin 40 mg by mouth once daily GI prophylaxis, Protonix DVT prophylaxis, heparin ATTESTATION BY PHYSICIAN I have seen and examined the patient. I reviewed the documentation, medical decision making, and treatment plan as noted by the mid-level provider above. I agree with the findings and plan of care. LIANNA GILLIAM MD, ELIZABETH NP Jun 23, 2025 10:15
--- NOTE | 2025-06-23 14:02 | NUR ---
PT AND SIGNIFICANT INFORMED THAT A ROOM ASSIGNMENT HAS BEEN GIVEN AND THEY WILL BE HEADING UP SOON. THEY WERE VERY GRATEFUL AND GAVE THE ED NIGHT/DAY SHIFT COMPLIMENTS.
--- NOTE | 2025-06-23 14:14 | NUR ---
ARRIVAL TO UNIT PT ARRIVED VIA STRETCHER. A&OX4. SPOUSE AT BEDSIDE. NON LABORED BREATHING. DENIES PAIN AT THIS TIME. NOTED 20G TO LEFT AC. NO QUESTIONS AT THIS TIME.
[2025-06-24] VITALS (8 sets, daily range): BP systolic 96–132; BP diastolic 57–67; PULSE 83–98; RESP 19–21; TEMP 98.2–99.5; O2SAT 94–98
[2025-06-24 05:41] LABS: IMMATURE GRANULOCYTE ABSOLUTE 0.04 K/uL (0-1); NUCLEATED RED BLOOD CELLS 0.0 % (0.0-0.19); PLATELET COUNT (AUTO) 242 K/uL (130-400); RED BLOOD CELL COUNT(AUTO) 3.27 MIL/uL (4.50-6.20); RED CELL DISTRIBUTION WIDTH 15.4 % (11.0-15.5); WHITE BLOOD COUNT (AUTO) 9.3 K/uL (4.8-10.8)
[2025-06-24 06:06] LABS: ASPARTATE AMINOTRANSFERASE 21.0 U/L (10-37); CREATININE 1.5 mg/dL (0.5-1.3); GLOMERULAR FILTR. RATE CALC 51.0 mL/min (>90); GLUCOSE,RANDOM 132.0 mg/dL (70-105); SODIUM SERUM 134.0 mmol/L (136-145); TOTAL PROTEIN, SERUM 6.5 g/dL (6.0-8.3); UREA NITROGEN, BLOOD 8.0 mg/dL (7-18)
[2025-06-24] MEDS: PoTASSium chloRIDE 20MEQ ER 20 MEQ ERTAB PO PRN (06:27)
[2025-06-24] MEDS ORDERED: TAMS-55 PO (12:04)
--- NOTE | 2025-06-24 12:09 | PN ---
[facility] PROGRESS NOTE Date of Service: Jun 24, 2025 Time of Service: 12:05 SUBJECTIVE: [ ] Patient states that he came to the emergency department with a chief complaint of urinary retention. Onset was 06/20/2025. Location is genital. Duration is on and off. Character is described as, "like it would hurt when I pee and also I would only get little drops. "There was no alleviating factors. Symptoms are aggravated with voiding. Patient denies any associated chest pain or shortness and breath. Today in the emergency department WBCs 18.3, left shift neutrophils 80.7%, creatinine 1.7, glucose 310 mg/dL, urinalysis positive for leukocyte esterase and WBCs too many to count per high-powered microscopy field. Additionally patient presented with a temperature of 101.7, heart rate 139, WBCs 18.3 and identified source of infection being urine. Patient met clinical sepsis criteria. 06/22/25 patient remains in ED 17 T-max 99.7. Continues on broad-spectrum antibiotic. Culture blood cultures in process. Patient denied chest pain or shortness for breath. We will replace electrolytes as per protocol. 06/23/25 patient was seen earlier patient remain in ED 17. T-max 99.3. Continues on Zosyn IV ID on board. Waiting for final cultures. 06/24/25 patient was seen earlier final urine cultures with Gram-negative E coli patient we will be discharged on oral antibiotics. Blood culture so far-48 hours T-max overnight 100.4. Patient's hemoglobin dropping on admission 10.0 today 8.0 we will get occult blood in anemia workup. Renal function continues we will consult check writing machine operator's. Was patient denied chest pain or shortness for breath REVIEW OF SYSTEMS CONSTITUTIONAL: Denies fevers, chills, or night sweats. No unintentional weight loss reported. NEUROLOGICAL: Denies headache, amaurosis fugax, motor weakness, sensory deficit, vertigo/spinning sensation, gait abnormalities, or tremors. ENT: No hearing loss, otalgia, otorrhea, rhinitis, rhinorrhea, hoarseness, or sore throat. CARDIOVASCULAR: Denies any exertional angina, dyspnea on exertion, orthopnea, paroxysmal nocturnal dyspnea, palpitations, life-threatening arrhythmias, claudication. PULMONARY: Denies any shortness of breath, cough, phlegm/sputum, hemoptysis, pleuritic chest pain. SLEEP: Denies morning headaches, daytime somnolence or napping. Denies difficulty falling asleep, staying asleep, waking from sleep. Denies knowledge of snoring. GASTROINTESTINAL: Denies any type of dysphagia to either liquids or solids. Denies nausea, vomiting, pyrosis, early satiety, abdominal pain, diarrhea, constipation, or changes in stool consistency or caliber. Denies coffee-ground emesis, hematemesis, hematochezia, or melanotic stools. GENITOURINARY: Denies frequency, urgency, nocturia, hematuria or incontinence (Storage/Irritative symptoms.) Low urinary stream, straining to void, urinary intermittency or hesitancy, splitting of the voiding stream, terminal dribbling. ENDOCRINOLOGIC: Denies polyuria, polydipsia, polyphagia or heat/cold intolerances. HEMATOLOGIC: Denies thrombophilia/previous clots, or coagulopathy/bleeding disorders. ONCOLOGIC: Denies personal history of malignancy. DERMATOLOGIC: Denies rashes or pruritus. PSYCHIATRIC: Denies any suicidal or homicidal ideation. Denies hallucinations. PHYSICAL EXAM GENERAL APPEARANCE: The patient is awake, alert, and oriented, in no acute cardiopulmonary distress. NEUROLOGICAL: Cranial nerves II-XII grossly intact. Motor is 5/5 in bilateral upper and lower extremities proximal to distal. No sensory deficits. HEENT: Face is symmetric. Pupils are equal and reactive. Extraocular movements are intact. NECK: Supple. No JVD. No thyromegaly. No submental, submandibular, pre- /postauricular, occipital or supraclavicular lymphadenopathy. CHEST: Normal chest expansion. No Telemetry. LUNGS: Absence of any rales, rhonchi or any wheezing. CARDIOVASCULAR: Regular. S1 and S2 normal. No appreciable rubs, murmurs or gallops. ABDOMEN: Soft, nontender, and nondistended. There is no rebound, voluntary guarding, or rigidity. : Deferred. No Ann. EXTREMITIES: Non-edematous and not cyanotic. No clubbing. Good capillary refill. SKIN: No skin breakdown. Vital Signs (last 8hr) Date Time Temp Pulse Resp B/P (MAP) Pulse Ox O2 Delivery O2 Flow Rate FiO2 06/24/25 07:55 98.6 86 19 123/66 94 Room Air LABS: Laboratory: Test 06/24/25 11:21 06/24/25 05:25 06/23/25 04:30 Range/Units Whole Blood Glucose 147 H 70-110 MG/DL White Blood Count 9.3 4.8-10.8 K/uL Red Blood Count 3.27 L 4.50-6.20 MIL/uL Hemoglobin 8.0 L 14.0-18.0 g/dL Hematocrit 25.3 L 42-54 % Mean Corpuscular Volume 77.4 L 79-99 fL Mean Corpuscular Hemoglobin 24.5 L 27.0-33.0 pg Mean Corpuscular Hemoglobin Concent 31.6 L 32.0-36.0 g/dL Red Cell Distribution Width 15.4 11.0-15.5 % Platelet Count 242 130-400 K/uL Mean Platelet Volume 9.6 7.5-10.5 fL Immature Granulocyte % (Auto) 0.4 0-1 % Neutrophils (%) (Auto) 67.6 40.0-77.0 % Lymphocytes (%) (Auto) 16.0 L 21.0-51.0 % Monocytes (%) (Auto) 12.6 3.0-13.0 % Eosinophils (%) (Auto) 3.1 0.0-8.0 % Basophils (%) (Auto) 0.3 0.0-5.0 % Neutrophils # (Auto) 6.3 1.8-7.7 K/uL Lymphocytes # (Auto) 1.5 1.0-4.8 K/uL Monocytes # (Auto) 1.2 H 0.1-1.0 K/uL Eosinophils # (Auto) 0.29 0.00-0.70 K/uL Basophils # (Auto) 0.03 0.00-0.20 K/uL Absolute Immature Granulocyte (auto 0.04 0-1 K/uL Nucleated Red Blood Cells 0.0 0.0-0.19 % Sodium Level 134 L 136-145 mmol/L Potassium Level 3.7 3.5-5.1 mmol/L Chloride Level 100 L 101-111 mmol/L Carbon Dioxide Level 29 21-32 mmol/L Blood Urea Nitrogen 8 7-18 mg/dL Creatinine 1.5 H 0.5-1.3 mg/dL Glomerular Filtration Rate Calc 51 >90 mL/min Random Glucose 132 H 70-105 mg/dL Total Calcium 7.9 L 8.5-10.1 mg/dL Magnesium Level 1.80 1.80-2.40 mg/dL Total Bilirubin 0.5 0.2-1.0 mg/dL Aspartate Amino Transf (AST/SGOT) 21 10-37 U/L Alanine Aminotransferase (ALT/SGPT) 20 12-78 U/L Alkaline Phosphatase 58 50-136 U/L Total Protein 6.5 6.0-8.3 g/dL Albumin 2.7 L 3.5-5.0 g/dL C-Reactive Protein, Quantitative 219.60 H 0.5-3.0 mg/L Procalcitonin 0.19 0.05-0.5 ng/mL Current Medications Medications (Trade) Dose Ordered Sig/Peggy Route PRN Reason Start Time Stop Time Status Last Admin Dose Admin Acetaminophen (TYLenol 325MG TAB) 650 mg Q6H PRN PO TEMPERATURE GREATER THAN 101.5 06/22/25 01:30 07/22/25 01:29 06/22/25 19:03 650 MG Amlodipine Besylate (NorvASC 5MG TAB) 10 mg DAILY PO 06/23/25 09:00 07/23/25 08:59 06/24/25 08:35 10 MG Atorvastatin Calcium (LIPItor 40MG) 40 mg HS PO 06/22/25 21:00 07/22/25 20:59 06/23/25 21:11 40 MG Heparin Sodium (Porcine) (HEParin 5,000 UNIT VIAL) 5,000 unit BID SQ 06/22/25 09:00 07/22/25 08:59 06/24/25 08:40 5,000 UNIT Hydralazine HCl (APRESOLine 20MG INJ) 10 mg Q6H PRN IV For:SBP above 160;DBP above 90 06/22/25 01:30 07/22/25 01:29 Insulin Human Regular (humuLIN R 100 UNIT/ML 3ML) INSULIN SLIDING SCAL... ACHS SQ 06/22/25 07:30 07/22/25 07:29 06/23/25 16:52 2 UNIT Lactated Ringer's 1,000 ml @ 75 mls/hr [id number] IV 06/22/25 01:30 07/22/25 01:29 06/23/25 15:03 75 MLS/HR Lactulose (Constulose 20gm/ 30ml Udcup) 20 gm BID PRN PO CONSTIPATION 06/22/25 01:30 07/22/25 01:29 Linagliptin (TradJENTA) 5 mg DAILY PO 06/23/25 09:00 07/23/25 08:59 06/24/25 08:36 5 MG Lisinopril (Prinivil 20mg) 20 mg DAILY PO 06/23/25 09:00 07/23/25 08:59 06/24/25 08:36 20 MG Magnesium Sulfate 50 ml @ 0 mls/hr PROTOCOL IV 06/22/25 11:30 07/22/25 11:29 06/22/25 12:02 24 MLS/HR Magnesium Sulfate 50 ml @ 0 mls/hr PROTOCOL IV 06/22/25 13:00 06/22/25 12:43 DC Magnesium Sulfate 50 ml @ 0 mls/hr PROTOCOL PRN IV low mag level 06/22/25 13:00 06/22/25 12:43 DC Miscellaneous Medication (Pravastatin Sodium ) 1 tab DAILY PO 06/23/25 09:00 06/22/25 12:52 DC Morphine Sulfate (morPHINE 4MG SYG) 2 mg Q4H PRN IVP SEVERE PAIN (7-10) 06/22/25 01:30 06/29/25 01:29 Ondansetron HCl (zoFRAN 4MG INJ) 4 mg Q6H PRN IV NAUSEA/VOMITING 06/22/25 01:30 07/22/25 01:29 Pantoprazole Sodium (PROTonix 40MG TAB) 40 mg DAILY PO 06/22/25 09:00 07/22/25 08:59 06/24/25 08:35 40 MG Piperacillin Sod/ Tazobactam Sod (Zosyn 3.375gm+NS 50ml) 3.375 gm Q8H IV 06/22/25 03:00 07/02/25 02:59 06/24/25 10:29 3.375 GM Potassium Chloride 100 ml @ 100 mls/hr AD PRN IV POTASSIUM PROTOCOL 06/22/25 13:00 07/22/25 12:59 Potassium Chloride (K-Dur/Klor-Con 20meq) 20 meq AD PRN PO POTASSIUM PROTOCOL 06/22/25 13:00 07/22/25 12:59 06/24/25 06:27 20 MEQ Potassium Chloride (KCl 10% Elixir 20meq/15ml) 20 meq AD PRN PO POTASSIUM PROTOCOL 06/22/25 13:00 07/22/25 12:59 Tamsulosin HCl (FloMAX) 0.4 mg DAILY PO 06/23/25 09:00 07/23/25 08:59 06/24/25 08:36 0.4 MG DIAGNOSTICS / RADIOLOGY: [ ] ASSESSMENT: Sepsis, POA Urinary tract infection, POA Leukocytosis, POA Uncontrolled Diabetes mellitius type2, POA ELENA versus CKD, POA resolved Electrolyte derangement hyponatremia. Hypomagnesemia Lactic acidosis, POA Hypertension Hyperlipidemia] Acute n chronic anemia PLAN: [ ] Admit medical floor remain in ED 17 Sepsis, leukocytosis, lactic acidosis, urinary tract infection: Resolved IV fluids 75 mL/hour Antibiotics Empiric antibiotic therapy with Zosyn. Microbiology urine culture Gram-negative E coli blood culture so far-48 hours Flomax 0.4 mg p.o. daily we will continue upon discharge Diabetes mellitus type 2: A1c 7.1 Glucometer checks a.c. and HS 1800 ADA diet Humulin R sliding scale Acute kidney injury: Resolved Lactated Ringer's at 75 mL/HR IV fluid maintenance therapy Avoid NSAIDs renal dose medication strict I&Os Home medications reconciled Hypertension, hyperlipidemia: Hydralazine 10 mg IV every 4 hours for systolic blood pressure greater than 160 mmHg Atorvastatin 40 mg by mouth once daily Anemia workup occult blood. GI prophylaxis, Protonix DVT prophylaxis, heparin ATTESTATION BY PHYSICIAN I have seen and examined the patient. I reviewed the documentation, medical de cision making, and treatment plan as noted by the mid-level provider above. I agree with the findings and plan of care. LIANNA GILLIAM MD, [facility] Jun 24, 2025 12:09
--- NOTE | 2025-06-24 15:20 | CONS ---
NEPHROLOGY CONSULTATION NOTE Date/Time Patient Seen: Jun 24, 2025 1430 Reason for Consultation: Renal failure, burning urination and decreased urine output HISTORY OF PRESENT ILLNESS: This is a 65-year-old male with a past medical history of diabetes mellitus type 2, hypertension, hyperlipidemia, kidney stones. He presented to emergency room with complaints of burning urination decreased urine output. UA was positive for leukocyte esterase. Urine culture positive for E coli. Blood cultures has been negative He continues on antibiotics He was noted with worsening renal failure We are consulted for renal failure Renal function remains elevated Electrolytes are stable CT abdomen/pelvis was noted. He does have a history of previous nephrolithiasis. Denies any prior history of urinary retention He was seen in the medical floor, in no acute distress Family at the bedside Prognosis remains guarded REVIEW OF SYSTEMS: GENERAL: Negative for any nausea, vomiting, fevers, chills, or weight loss. NEUROLOGIC: Negative for any blurry vision, blind spots, double vision, facial asymmetry, dysphagia, dysarthria, hemiparesis, hemisensory deficits, vertigo, ataxia. HEENT: Negative for any head trauma, neck trauma, neck stiffness, photophobia, phonophobia, sinusitis, rhinitis. CARDIAC: Negative for any chest pain, dyspnea on exertion, paroxysmal nocturnal dyspnea, peripheral edema. PULMONARY: Negative for any shortness of breath, wheezing, COPD, or TB exposure. GASTROINTESTINAL: Negative for any abdominal pain, nausea, vomiting, bright red blood per rectum, melena. GENITOURINARY: Negative for any dysuria, hematuria, incontinence. INTEGUMENTARY: Negative for any rashes, cuts, insect bites. RHEUMATOLOGIC: Negative for any joint pains, photosensitive rashes, history of vasculitis or kidney problems. HEMATOLOGIC: Negative for any abnormal bruising, frequent infections or bleeding. PAST MEDICAL HISTORY: Diabetes mellitus type 2 Hypertension Hyperlipidemia Nephrolithiasis PAST SURGICAL HISTORY: Left renal lithotripsy Bilateral eye surgery PAST SOCIAL HISTORY: Patient drinks once a week usually three beers that are 12 oz each Denies use of tobacco or illicit drugs FAMILY HISTORY: Noncontributory PHYSICAL EXAM: GENERAL: Alert and oriented x 3. No acute distress. Well-nourished. EYES: EOMI. Anicteric. HENT: Moist mucous membranes. No scleral icterus. No cervical lymphadenopathy. LUNGS: Clear to auscultation bilaterally. No accessory muscle use. CARDIOVASCULAR: Regular rate and rhythm. No murmur. No JVD. ABDOMEN: Soft, non-tender and non-distended. No palpable masses. EXTREMITIES: No edema. Non-tender. SKIN: No rashes or lesions. Warm. NEUROLOGIC: No focal neurological deficits. CN II-XII grossly intact, but not individually tested. PSYCHIATRIC: Cooperative. Appropriate mood and affect. MEDICATIONS: [ ] Current Medications Medications (Trade) Dose Ordered Sig/Peggy Route PRN Reason Start Time Stop Time Status Last Admin Dose Admin Acetaminophen (TYLenol 325MG TAB) 650 mg Q6H PRN PO TEMPERATURE GREATER THAN 101.5 06/22/25 01:30 07/22/25 01:29 06/22/25 19:03 650 MG Amlodipine Besylate (NorvASC 5MG TAB) 10 mg DAILY PO 06/23/25 09:00 07/23/25 08:59 06/24/25 08:35 10 MG Atorvastatin Calcium (LIPItor 40MG) 40 mg HS PO 06/22/25 21:00 07/22/25 20:59 06/23/25 21:11 40 MG Heparin Sodium (Porcine) (HEParin 5,000 UNIT VIAL) 5,000 unit BID SQ 06/22/25 09:00 07/22/25 08:59 06/24/25 08:40 5,000 UNIT Hydralazine HCl (APRESOLine 20MG INJ) 10 mg Q6H PRN IV For:SBP above 160;DBP above 90 06/22/25 01:30 07/22/25 01:29 Insulin Human Regular (humuLIN R 100 UNIT/ML 3ML) INSULIN SLIDING SCAL... ACHS SQ 06/22/25 07:30 07/22/25 07:29 06/23/25 16:52 2 UNIT Lactated Ringer's 1,000 ml @ 75 mls/hr [id number] IV 06/22/25 01:30 07/22/25 01:29 06/23/25 15:03 75 MLS/HR Lactulose (Constulose 20gm/ 30ml Udcup) 20 gm BID PRN PO CONSTIPATION 06/22/25 01:30 07/22/25 01:29 Levofloxacin (LEvaquIN 750MG TAB) 750 mg Q48H PO 06/24/25 13:00 07/04/25 12:59 06/24/25 13:19 750 MG Linagliptin (TradJENTA) 5 mg DAILY PO 06/23/25 09:00 07/23/25 08:59 06/24/25 08:36 5 MG Lisinopril (Prinivil 20mg) 20 mg DAILY PO 06/23/25 09:00 07/23/25 08:59 06/24/25 08:36 20 MG Magnesium Sulfate 50 ml @ 0 mls/hr PROTOCOL IV 06/22/25 11:30 07/22/25 11:29 06/22/25 12:02 24 MLS/HR Magnesium Sulfate 50 ml @ 0 mls/hr PROTOCOL IV 06/22/25 13:00 06/22/25 12:43 DC Magnesium Sulfate 50 ml @ 0 mls/hr PROTOCOL PRN IV low mag level 06/22/25 13:00 06/22/25 12:43 DC Miscellaneous Medication (Pravastatin Sodium ) 1 tab DAILY PO 06/23/25 09:00 06/22/25 12:52 DC Morphine Sulfate (morPHINE 4MG SYG) 2 mg Q4H PRN IVP SEVERE PAIN (7-10) 06/22/25 01:30 06/29/25 01:29 Ondansetron HCl (zoFRAN 4MG INJ) 4 mg Q6H PRN IV NAUSEA/VOMITING 06/22/25 01:30 07/22/25 01:29 Pantoprazole Sodium (PROTonix 40MG TAB) 40 mg DAILY PO 06/22/25 09:00 07/22/25 08:59 06/24/25 08:35 40 MG Piperacillin Sod/ Tazobactam Sod (Zosyn 3.375gm+NS 50ml) 3.375 gm Q8H IV 06/22/25 03:00 06/24/25 12:28 DC 06/24/25 10:29 3.375 GM Potassium Chloride 100 ml @ 100 mls/hr AD PRN IV POTASSIUM PROTOCOL 06/22/25 13:00 07/22/25 12:59 Potassium Chloride (K-Dur/Klor-Con 20meq) 20 meq AD PRN PO POTASSIUM PROTOCOL 06/22/25 13:00 07/22/25 12:59 06/24/25 13:20 20 MEQ Potassium Chloride (KCl 10% Elixir 20meq/15ml) 20 meq AD PRN PO POTASSIUM PROTOCOL 06/22/25 13:00 07/22/25 12:59 Tamsulosin HCl (FloMAX) 0.4 mg DAILY PO 06/23/25 09:00 07/23/25 08:59 06/24/25 08:36 0.4 MG Vital Signs (last 8hr) Date Time Temp Pulse Resp B/P (MAP) Pulse Ox O2 Delivery O2 Flow Rate FiO2 06/24/25 11:59 99.1 87 21 124/63 95 Room Air 06/24/25 07:55 98.6 86 19 123/66 94 Room Air 06/24/25 07:30 94 Room Air* 0 21 DIAGNOSTICS / RADIOLOGY: [place] [address] IMAGING REPORT Signed PATIENT: FLAVIO FRANCISCO MR#: [id number] : 1960 SEX: M AGE: 65 LOCATION: [facility] ORDER 00 STATUS: REG ER REPORT#: [id number] SERVICE 00 REASON: sob ORDERING PHYSICIAN: BILL PARADA PROCEDURE: CXR1VW - CHEST 1VW EXAM: CR Chest, 1 View. CLINICAL HISTORY: sob COMPARISON: None provided. FINDINGS: LUNGS: There is no mass, infiltrate, or acute pulmonary abnormality. PLEURAL SPACES: No pleural effusion or pneumothorax. MEDIASTINUM: The cardiomediastinal silhouette is within normal limits. BONES: No acute osseous abnormality. IMPRESSION: No acute cardiopulmonary pathology is evident. /Isabel DICTATED BY: ALEXEY TOPETE MD DATE: 06/21/252355 ELECTRONICALLY SIGNED BY: ALEXEY TOPETE MD DATE: 06/21/252355 PATIENT: FLAVIO FRANCISCO MR#: [id number] : 1960 SEX: M AGE: 65 LOCATION: ED ORDER 28 STATUS: REG ER REPORT#: [id number] SERVICE 27 REASON: ABD PAIN, urinary retention ORDERING PHYSICIAN: BILL PARADA PROCEDURE: ABD PEL WO - CT ABDOMEN/PELVIS W/O CONTRAST EXAM: CT Abdomen and Pelvis Without Intravenous Contrast CLINICAL HISTORY: 65 year old male with abdominal pain and urinary retention. TECHNIQUE: Axial computed tomography images of the abdomen and pelvis without intravenous contrast. Dose reduction technique was used including one or more of the following: automated exposure control, adjustment of mA and kV according to patient size, and/or iterative reconstruction. CONTRAST: NONE COMPARISON: None provided. FINDINGS: LUNG BASES: No basilar airspace consolidation or pleural effusion. LIVER: Unremarkable. GALLBLADDER AND BILE DUCTS: Unremarkable. No calcified stone. No ductal dilation. PANCREAS: Unremarkable. SPLEEN: Unremarkable. ADRENAL GLANDS: Unremarkable. KIDNEYS, URETERS, AND BLADDER: Nonspecific bilateral perinephric fat stranding. No hydronephrosis or nephrolithiasis. No ureteral or bladder calculi. No obstructing ureteral stone. STOMACH AND BOWEL: No obstruction. No wall thickening. No CT evidence of colitis or acute diverticulitis. APPENDIX: No CT evidence for appendicitis. PERITONEUM: No free fluid. No free air. LYMPH NODES: No lymphadenopathy. REPRODUCTIVE: Unremarkable as visualized. VASCULATURE: No aortic aneurysm. ABDOMINAL WALL AND SOFT TISSUES: Unremarkable. BONES: Moderate degenerative changes in the lumbar spine. No fracture or suspicious osseous abnormality. IMPRESSION: 1. No acute intra-abdominal or pelvic abnormality related to the clinical history of abdominal pain and urinary retention. /Isabel DICTATED BY: ALEXEY TOPETE MD DATE: 06/22/2513 ELECTRONICALLY SIGNED BY: ALEXEY TOPETE MD DATE: 06/22/2513 LABORATORY: [ ] Hematology Labs: Test 06/24/25 05:25 Range/Units White Blood Count 9.3 4.8-10.8 K/uL Red Blood Count 3.27 L 4.50-6.20 MIL/uL Hemoglobin 8.0 L 14.0-18.0 g/dL Hematocrit 25.3 L 42-54 % Mean Corpuscular Volume 77.4 L 79-99 fL Mean Corpuscular Hemoglobin 24.5 L 27.0-33.0 pg Mean Corpuscular Hemoglobin Concent 31.6 L 32.0-36.0 g/dL Red Cell Distribution Width 15.4 11.0-15.5 % Platelet Count 242 130-400 K/uL Mean Platelet Volume 9.6 7.5-10.5 fL Immature Granulocyte % (Auto) 0.4 0-1 % Neutrophils (%) (Auto) 67.6 40.0-77.0 % Lymphocytes (%) (Auto) 16.0 L 21.0-51.0 % Monocytes (%) (Auto) 12.6 3.0-13.0 % Eosinophils (%) (Auto) 3.1 0.0-8.0 % Basophils (%) (Auto) 0.3 0.0-5.0 % Neutrophils # (Auto) 6.3 1.8-7.7 K/uL Lymphocytes # (Auto) 1.5 1.0-4.8 K/uL Monocytes # (Auto) 1.2 H 0.1-1.0 K/uL Eosinophils # (Auto) 0.29 0.00-0.70 K/uL Basophils # (Auto) 0.03 0.00-0.20 K/uL Absolute Immature Granulocyte (auto 0.04 0-1 K/uL Nucleated Red Blood Cells 0.0 0.0-0.19 % Chemistry Labs: Test 06/24/25 11:21 06/24/25 05:25 06/23/25 04:30 Range/Units Whole Blood Glucose 147 H 70-110 MG/DL Sodium Level 134 L 136-145 mmol/L Potassium Level 3.7 3.5-5.1 mmol/L Chloride Level 100 L 101-111 mmol/L Carbon Dioxide Level 29 21-32 mmol/L Blood Urea Nitrogen 8 7-18 mg/dL Creatinine 1.5 H 0.5-1.3 mg/dL Glomerular Filtration Rate Calc 51 >90 mL/min Random Glucose 132 H 70-105 mg/dL Total Calcium 7.9 L 8.5-10.1 mg/dL Magnesium Level 1.80 1.80-2.40 mg/dL Total Bilirubin 0.5 0.2-1.0 mg/dL Aspartate Amino Transf (AST/SGOT) 21 10-37 U/L Alanine Aminotransferase (ALT/SGPT) 20 12-78 U/L Alkaline Phosphatase 58 50-136 U/L Total Protein 6.5 6.0-8.3 g/dL Albumin 2.7 L 3.5-5.0 g/dL C-Reactive Protein, Quantitative 219.60 H 0.5-3.0 mg/L Procalcitonin 0.19 0.05-0.5 ng/mL ASSESSMENT: Anemia Acute renal failure Sepsis Urinary tract infection Leukocytosis Uncontrolled Diabetes mellitus type2 Electrolyte derangement Lactic acidosis Hypertension Hyperlipidemia PLAN: Labs, diagnostic, radiologic exams reviewed and interpreted by myself and supervising physician. We have reviewed external records in detail Obtain UA, urine electrolytes, urine creatinine, urine osmolality and complete renal ultrasound Use bladder scan to rule out urinary retention postvoid twice a day Start Nephro-Usman daily Require close monitoring of renal function and electrolytes Order CBC, CMP, uric acid, PTH, and electrolytes in am Continue with antibiotics BiPAP as necessary, for respiratory distress Monitor blood pressure adjust medication doses as needed Avoid hypotensive episodes May use Dilaudid 0.5 mg IV every 6 hours as needed for severe pain Monitor blood sugars Strict intake, output, and daily weight should be monitored Please renally adjust medications Avoid nephrotoxic and nonsteroidal drugs Avoid contrast if possible Will continue to monitor renal function, anemia, electrolytes Treatment plan discussed with patient Questions were answered We have discussed with the other team physicians in detail about the care plan We will continue to monitor the patient closely Thank you for allowing us to participate in the care of this patient ATTESTATION BY PHYSICIAN I have seen and examined the patient. I reviewed the documentation, medical decision making, and treatment plan as noted by the mid-level provider above. I agree with the findings and plan of care. TERESA COMER MD, [facility] Jun 24, 2025 15:20
--- NOTE | 2025-06-24 19:36 | NUR ---
BLADDER SCAN SCAN SHOWED NO URINE. PER PATIENT HE HAD URINATED 15 MINUTES BEFORE I HAD SCANNED HIM. PATIENT DOESN'T COMPLAIN OF ANY DIFFICULTIES URINATING OR ANY SORT OF DISCOMFORT. HE SAYS HE URINATED FINE WITH NO PROBLEM.
[2025-06-25] VITALS: BP 126/61; PULSE 84; RESP 16; TEMP 97.9
[2025-06-25 04:00] VITALS: BP 123/63; PULSE 84; RESP 16; TEMP 98.4
[2025-06-25 05:10] LABS: NUCLEATED RED BLOOD CELLS 0.0 % (0.0-0.19); PLATELET COUNT (AUTO) 329.0 K/uL (130-400); RED BLOOD CELL COUNT(AUTO) 3.7 MIL/uL (4.50-6.20); RED CELL DISTRIBUTION WIDTH 15.3 % (11.0-15.5); WHITE BLOOD COUNT (AUTO) 7.8 K/uL (4.8-10.8)
[2025-06-25 06:06] LABS: % IRON SATURATION 9.4 % (30-44); IRON, SERUM 28.0 mcg/dL (65-175)
[2025-06-25 06:17] LABS: ASPARTATE AMINOTRANSFERASE 25.0 U/L (10-37); CREATININE 1.6 mg/dL (0.5-1.3); GLOMERULAR FILTR. RATE CALC 47.0 mL/min (>90); GLUCOSE,RANDOM 108.0 mg/dL (70-105); PHOSPHORUS 3.1 mg/dL (2.5-4.9); SODIUM SERUM 137.0 mmol/L (136-145); TOTAL PROTEIN, SERUM 7.3 g/dL (6.0-8.3); UREA NITROGEN, BLOOD 11.0 mg/dL (7-18)
--- NOTE | 2025-06-25 07:07 | PN ---
INFECTIOUS DISEASE FOLLOWUP NOTE DATE OF SERVICE: 06/24/2025 SUBJECTIVE: The patient is seen and examined on bedside today. No fever or chills. No nausea. No vomiting. No abdominal pain. Urinary symptoms have resolved. No cough, shortness of breath. Tolerating antibiotic. No rashes or itchiness. PHYSICAL EXAMINATION: VITAL SIGNS: Temperature 97.83. EYES: No icterus. Pupils equal and reactive. HENT: No oral thrush seen. Moist oral mucosa. NECK: Supple. No JVD or thyromegaly. LUNGS: Good air entry. No rales. No rhonchi. CARDIOVASCULAR: S1 and S2, regular. No murmur heard. ABDOMEN: Obese, soft, nontender. Bowel sound is present. CENTRAL NERVOUS SYSTEM: Awake, alert, oriented x 3. No focal deficits. SKIN: No rashes. No itchiness. LYMPHATIC: No lymphadenopathy. No peripheral lymphadenopathy. BACK: No deformity. No pressure ulcer. LABS: Urine culture grew E. coli. ASSESSMENT: A 65-year-old male with urinary symptoms: * Urinary tract infection. * Anemia. * Pulmonary hypertension. * Obesity. PLAN: * Discontinue Zosyn. * Start the patient on levofloxacin. * Continue pain management. * Continue nutritional support. * Continue antiemetic. TID: [id number] RECEIPT: [id number]
[2025-06-25 07:30] VITALS: O2SAT 97
--- NOTE | 2025-06-25 07:36 | HMCIMG ---
EXAMINATION: ULTRASOUND OF THE RETROPERITONEUM. CLINICAL HISTORY: Decreased renal function. COMPARISON: CT abdomen and pelvis without contrast dated 06/21/2025. TECHNIQUE: Real-time grayscale ultrasound images of the kidneys. FINDINGS: The kidneys are normal in caliber, the right kidney measures 10.8 x 5.5 x 4.6 cm and the left kidney measures 11.8 x 5.0 x 3.8 cm in its craniocaudal, AP, and transverse dimensions respectively. There is normal renal cortical thickness, and cortical echogenicity. There is no renal calculus or hydronephrosis. There is lobulated appearance of the right kidney. The urinary bladder is normal in caliber and wall thickness. There are no calculi in the urinary bladder. IMPRESSION: No significant abnormality other than the lobulated appearance of the right kidney. /[place]
[2025-06-25 08:00] VITALS: BP 111/67; PULSE 89; RESP 19; TEMP 98.1
[2025-06-25] MEDS: Vitamin B Complex/Vit C/Folic Acid PO SCH (08:02)
--- NOTE | 2025-06-25 10:03 | PN ---
NEPHROLOGY PROGRESS NOTE Date/Time Patient Seen: Jun 25, 2025 SUBJECTIVE: This is a 65-year-old male with a past medical history of diabetes mellitus type 2, hypertension, hyperlipidemia, kidney stones. He presented to emergency room with complaints of burning urination decreased urine output. UA was positive for leukocyte esterase. Urine culture positive for E coli. Blood cultures has been negative He continues on antibiotics as per ID He was noted with worsening renal failure We are consulted for renal failure Renal function remains elevated Electrolytes are stable CT abdomen/pelvis was noted. He does have a history of previous nephrolithiasis. He was seen in the medical floor, in no acute distress Family at the bedside Prognosis remains guarded REVIEW OF SYSTEMS: GENERAL: Negative for any nausea, vomiting, fevers, chills, or weight loss. NEUROLOGIC: Negative for any blurry vision, blind spots, double vision, facial asymmetry, dysphagia, dysarthria, hemiparesis, hemisensory deficits, vertigo, ataxia. HEENT: Negative for any head trauma, neck trauma, neck stiffness, photophobia, phonophobia, sinusitis, rhinitis. CARDIAC: Negative for any chest pain, dyspnea on exertion, paroxysmal nocturnal dyspnea, peripheral edema. PULMONARY: Negative for any shortness of breath, wheezing, COPD, or TB exposure. GASTROINTESTINAL: Negative for any abdominal pain, nausea, vomiting, bright red blood per rectum, melena. GENITOURINARY: Negative for any dysuria, hematuria, incontinence. INTEGUMENTARY: Negative for any rashes, cuts, insect bites. RHEUMATOLOGIC: Negative for any joint pains, photosensitive rashes, history of vasculitis or kidney problems. HEMATOLOGIC: Negative for any abnormal bruising, frequent infections or bleeding. PHYSICAL EXAM: GENERAL: Alert and oriented x 3. No acute distress. Well-nourished. EYES: EOMI. Anicteric. HENT: Moist mucous membranes. No scleral icterus. No cervical lymphadenopathy. LUNGS: Clear to auscultation bilaterally. No accessory muscle use. CARDIOVASCULAR: Regular rate and rhythm. No murmur. No JVD. ABDOMEN: Soft, non-tender and non-distended. No palpable masses. EXTREMITIES: No edema. Non-tender. SKIN: No rashes or lesions. Warm. NEUROLOGIC: No focal neurological deficits. CN II-XII grossly intact, but not individually tested. PSYCHIATRIC: Cooperative. Appropriate mood and affect. LABORATORY: [ ] Hematology Labs: Test 06/25/25 05:00 06/24/25 05:25 Range/Units White Blood Count 7.8 4.8-10.8 K/uL Red Blood Count 3.70 L 4.50-6.20 MIL/uL Hemoglobin 9.0 L 14.0-18.0 g/dL Hematocrit 27.5 L 42-54 % Mean Corpuscular Volume 74.3 L 79-99 fL Mean Corpuscular Hemoglobin 24.3 L 27.0-33.0 pg Mean Corpuscular Hemoglobin Concent 32.7 32.0-36.0 g/dL Red Cell Distribution Width 15.3 11.0-15.5 % Platelet Count 329 # 130-400 K/uL Mean Platelet Volume 9.4 7.5-10.5 fL Nucleated Red Blood Cells 0.0 0.0-0.19 % Reticulocyte Count (auto) 1.46123 0.42-2.23 % Immature Reticulocyte Fraction 29.20 H 0.18-0.48 % Immature Granulocyte % (Auto) 0.4 0-1 % Neutrophils (%) (Auto) 67.6 40.0-77.0 % Lymphocytes (%) (Auto) 16.0 L 21.0-51.0 % Monocytes (%) (Auto) 12.6 3.0-13.0 % Eosinophils (%) (Auto) 3.1 0.0-8.0 % Basophils (%) (Auto) 0.3 0.0-5.0 % Neutrophils # (Auto) 6.3 1.8-7.7 K/uL Lymphocytes # (Auto) 1.5 1.0-4.8 K/uL Monocytes # (Auto) 1.2 H 0.1-1.0 K/uL Eosinophils # (Auto) 0.29 0.00-0.70 K/uL Basophils # (Auto) 0.03 0.00-0.20 K/uL Absolute Immature Granulocyte (auto 0.04 0-1 K/uL Chemistry Labs: Test 06/25/25 05:15 06/25/25 05:00 Range/Units Whole Blood Glucose 139 H 70-110 MG/DL Sodium Level 137 136-145 mmol/L Potassium Level 4.3 3.5-5.1 mmol/L Chloride Level 101 101-111 mmol/L Carbon Dioxide Level 26 21-32 mmol/L Blood Urea Nitrogen 11 7-18 mg/dL Creatinine 1.6 H 0.5-1.3 mg/dL Glomerular Filtration Rate Calc 47 >90 mL/min Random Glucose 108 H 70-105 mg/dL Total Calcium 8.8 8.5-10.1 mg/dL Phosphorus Level 3.1 2.5-4.9 mg/dL Magnesium Level 1.90 1.80-2.40 mg/dL Iron Level 28 L 65-175 mcg/dL Total Iron Binding Capacity 296 250-450 mcg/dL Percent Iron Saturation 9.4 L 30-44 % Ferritin 64 30-400 ng/mL Total Bilirubin 0.3 # 0.2-1.0 mg/dL Aspartate Amino Transf (AST/SGOT) 25 10-37 U/L Alanine Aminotransferase (ALT/SGPT) 28 # 12-78 U/L Alkaline Phosphatase 67 50-136 U/L Total Protein 7.3 6.0-8.3 g/dL Albumin 3.0 L 3.5-5.0 g/dL Vitamin B12 Level 883 193-986 pg/mL DIAGNOSTICS / RADIOLOGY: [address] [address] IMAGING REPORT Signed PATIENT: FLAVIO FRANCISCO MR#: [id number] : 1960 SEX: M AGE: 65 LOCATION: [facility] ORDER 1523 STATUS: ADM IN REPORT#: [id number] SERVICE 1520 REASON: Decreased renal function ORDERING PHYSICIAN: BUDDY GALARZA PROCEDURE: RENAL - US RENAL SONOGRAM EXAMINATION: ULTRASOUND OF THE RETROPERITONEUM. CLINICAL HISTORY: Decreased renal function. COMPARISON: CT abdomen and pelvis without contrast dated 06/21/2025. TECHNIQUE: Real-time grayscale ultrasound images of the kidneys. FINDINGS: The kidneys are normal in caliber, the right kidney measures 10.8 x 5.5 x 4.6 cm and the left kidney measures 11.8 x 5.0 x 3.8 cm in its craniocaudal, AP, and transverse dimensions respectively. There is normal renal cortical thickness, and cortical echogenicity. There is no renal calculus or hydronephrosis. There is lobulated appearance of the right kidney. The urinary bladder is normal in caliber and wall thickness. There are no calculi in the urinary bladder. IMPRESSION: No significant abnormality other than the lobulated appearance of the right kidney. /[place] DICTATED BY: DULCE ANGEL Jr., MD DATE: 06/25/25834 ELECTRONICALLY SIGNED BY: DULCE ANGEL Jr., MD DATE: 06/25/25834 PATIENT: FLAVIO FRANCISCO MR#: [id number] : 1960 SEX: M AGE: 65 LOCATION: [facility] ORDER 00 STATUS: REG ER REPORT#: [id number] SERVICE 00 REASON: sob ORDERING PHYSICIAN: BILL PARADA SHEET TURNER PROCEDURE: CXR1VW - CHEST 1VW EXAM: CR Chest, 1 View. CLINICAL HISTORY: sob COMPARISON: None provided. FINDINGS: LUNGS: There is no mass, infiltrate, or acute pulmonary abnormality. PLEURAL SPACES: No pleural effusion or pneumothorax. MEDIASTINUM: The cardiomediastinal silhouette is within normal limits. BONES: No acute osseous abnormality. IMPRESSION: No acute cardiopulmonary pathology is evident. /[place] DICTATED BY: ALEXEY TOPETE MD DATE: 06/21/252355 ELECTRONICALLY SIGNED BY: ALEXEY TOPETE MD DATE: 06/21/252355 PATIENT: FLAVIO FRANCISCO MR#: [id number] : 1960 SEX: M AGE: 65 LOCATION: [facility] ORDER 28 STATUS: REG ER REPORT#: [id number] SERVICE 27 REASON: ABD PAIN, urinary retention ORDERING PHYSICIAN: BILL PARADA SHEET TURNER PROCEDURE: ABD PEL WO - CT ABDOMEN/PELVIS W/O CONTRAST EXAM: CT Abdomen and Pelvis Without Intravenous Contrast CLINICAL HISTORY: 65 year old male with abdominal pain and urinary retention. TECHNIQUE: Axial computed tomography images of the abdomen and pelvis without intravenous contrast. Dose reduction technique was used including one or more of the following: automated exposure control, adjustment of mA and kV according to patient size, and/or iterative reconstruction. CONTRAST: NONE COMPARISON: None provided. FINDINGS: LUNG BASES: No basilar airspace consolidation or pleural effusion. LIVER: Unremarkable. GALLBLADDER AND BILE DUCTS: Unremarkable. No calcified stone. No ductal dilation. PANCREAS: Unremarkable. SPLEEN: Unremarkable. ADRENAL GLANDS: Unremarkable. KIDNEYS, URETERS, AND BLADDER: Nonspecific bilateral perinephric fat stranding. No hydronephrosis or nephrolithiasis. No ureteral or bladder calculi. No obstructing ureteral stone. STOMACH AND BOWEL: No obstruction. No wall thickening. No CT evidence of colitis or acute diverticulitis. APPENDIX: No CT evidence for appendicitis. PERITONEUM: No free fluid. No free air. LYMPH NODES: No lymphadenopathy. REPRODUCTIVE: Unremarkable as visualized. VASCULATURE: No aortic aneurysm. ABDOMINAL WALL AND SOFT TISSUES: Unremarkable. BONES: Moderate degenerative changes in the lumbar spine. No fracture or suspicious osseous abnormality. IMPRESSION: 1. No acute intra-abdominal or pelvic abnormality related to the clinical history of abdominal pain and urinary retention. /[place] DICTATED BY: ALEXEY TOPETE MD DATE: 06/22/2513 ELECTRONICALLY SIGNED BY: ALEXEY TOPETE MD DATE: 06/22/2513 ASSESSMENT: Anemia Acute renal failure Sepsis Urinary tract infection Leukocytosis Uncontrolled Diabetes mellitus type2 Electrolyte derangement Lactic acidosis Hypertension Hyperlipidemia PLAN: Labs, diagnostic, radiologic exams reviewed and interpreted by myself and supervising physician. We have reviewed external records in detail Recommend Nephro-Usman and iron p.o. BUN discharged Please renally adjust antibiotics Follow up in the renal clinic in one week. Discontinue IV fluids Require close monitoring of renal function and electrolytes Order CBC, CMP, and electrolytes in am Continue with antibiotics BiPAP as necessary, for respiratory distress Monitor blood pressure adjust medication doses as needed Avoid hypotensive episodes May use Dilaudid 0.5 mg IV every 6 hours as needed for severe pain Monitor blood sugars Strict intake, output, and daily weight should be monitored Please renally adjust medications Avoid nephrotoxic and nonsteroidal drugs Avoid contrast if possible Will continue to monitor renal function, anemia, electrolytes Treatment plan discussed with patient Questions were answered We have discussed with the other team physicians in detail about the care plan We will continue to monitor the patient closely ATTESTATION BY PHYSICIAN I have seen and examined the patient. I reviewed the documentation, medical decision making, and treatment plan as noted by the mid-level provider above. I agree with the findings and plan of care. TERESA COMER MD, [facility] Jun 25, 2025 10:03
[2025-06-25 12:00] VITALS: BP_SYST 131; BP_SYST 141; BP_DIAS 71; BP_DIAS 75; PULSE 69; PULSE 83; RESP 19; TEMP 97.9; TEMP 98
[2025-06-25] MEDS ORDERED: LEVO750T90 PO (12:37)
--- NOTE | 2025-06-25 12:45 | DS ---
Discharge Summary Hospital Course Summary: Patient states that he came to the emergency department with a chief complaint of urinary retention. Onset was 06/20/2025. Location is genital. Duration is on and off. Character is described as, "like it would hurt when I pee and also I would only get little drops. "There was no alleviating factors. Symptoms are aggravated with voiding. Patient denies any associated chest pain or shortness and breath. Today in the emergency department WBCs 18.3, left shift neutrophils 80.7%, creatinine 1.7, glucose 310 mg/dL, urinalysis positive for leukocyte esterase and WBCs too many to count per high-powered microscopy field. Additionally patient presented with a temperature of 101.7, heart rate 139, WBCs 18.3 and identified source of infection being urine. Patient met clinical sepsis criteria. 06/22/25 patient remains in ED 17 T-max 99.7. Continues on broad-spectrum antibiotic. Culture blood cultures in process. Patient denied chest pain or shortness for breath. We will replace electrolytes as per protocol. 06/23/25 patient was seen earlier patient remain in ED 17. T-max 99.3. Continues on Zosyn IV ID on board. Waiting for final cultures. 06/24/25 patient was seen earlier final urine cultures with Gram-negative E coli patient we will be discharged on oral antibiotics. Blood culture so far-48 hours T-max overnight 100.4. Patient's hemoglobin dropping on admission 10.0 today 8.0 we will get occult blood in anemia workup. Renal function continues we will consult women specialist's. Was patient denied chest pain or shortness for breath 06/25/2025 patient is fully awake alert oriented x3 hemodynamically stable for discharge home. Patient will be discharged on oral antibiotics as recommended by ID levofloxacin 750 mg p.o. daily for 10 days. Patient will continue with Flomax 0.4 mg p.o. daily. Patient to follow-up with PCP 2-3 days in women specialist's one-week. Procedure(s): REASON: Decreased renal function ORDERING PHYSICIAN: BUDDY GALARZA PROCEDURE: RENAL - US RENAL SONOGRAM EXAMINATION: ULTRASOUND OF THE RETROPERITONEUM. CLINICAL HISTORY: Decreased renal function. COMPARISON: CT abdomen and pelvis without contrast dated 06/21/2025. TECHNIQUE: Real-time grayscale ultrasound images of the kidneys. FINDINGS: The kidneys are normal in caliber, the right kidney measures 10.8 x 5.5 x 4.6 cm and the left kidney measures 11.8 x 5.0 x 3.8 cm in its craniocaudal, AP, and transverse dimensions respectively. There is normal renal cortical thickness, and cortical echogenicity. There is no renal calculus or hydronephrosis. There is lobulated appearance of the right kidney. The urinary bladder is normal in caliber and wall thickness. There are no calculi in the urinary bladder. IMPRESSION: No significant abnormality other than the lobulated appearance of the right kidney. REASON: ABD PAIN, urinary retention ORDERING PHYSICIAN: BILL PARADA PROCEDURE: ABD PEL WO - CT ABDOMEN/PELVIS W/O CONTRAST EXAM: CT Abdomen and Pelvis Without Intravenous Contrast CLINICAL HISTORY: 65 year old male with abdominal pain and urinary retention. TECHNIQUE: Axial computed tomography images of the abdomen and pelvis without intravenous contrast. Dose reduction technique was used including one or more of the following: automated exposure control, adjustment of mA and kV according to patient size, and/or iterative reconstruction. CONTRAST: NONE COMPARISON: None provided. FINDINGS: LUNG BASES: No basilar airspace consolidation or pleural effusion. LIVER: Unremarkable. GALLBLADDER AND BILE DUCTS: Unremarkable. No calcified stone. No ductal dilation. PANCREAS: Unremarkable. SPLEEN: Unremarkable. ADRENAL GLANDS: Unremarkable. KIDNEYS, URETERS, AND BLADDER: Nonspecific bilateral perinephric fat stranding. No hydronephrosis or nephrolithiasis. No ureteral or bladder calculi. No obstructing ureteral stone. STOMACH AND BOWEL: No obstruction. No wall thickening. No CT evidence of colitis or acute diverticulitis. APPENDIX: No CT evidence for appendicitis. PERITONEUM: No free fluid. No free air. LYMPH NODES: No lymphadenopathy. REPRODUCTIVE: Unremarkable as visualized. VASCULATURE: No aortic aneurysm. ABDOMINAL WALL AND SOFT TISSUES: Unremarkable. BONES: Moderate degenerative changes in the lumbar spine. No fracture or suspicious osseous abnormality. IMPRESSION: 1. No acute intra-abdominal or pelvic abnormality related to the clinical history of abdominal pain and urinary retention. /[place] Assessment/Plan: discharged dx's; Sepsis, POA resolved Urinary tract infection, POA discharged with oral antibiotics Leukocytosis, POA resolved Uncontrolled Diabetes mellitius type2, POA ELENA versus CKD, POA resolved baseline Electrolyte derangement hyponatremia. Hypomagnesemia Lactic acidosis, POA Hypertension Hyperlipidemia] Acute n chronic anemia PLAN: [ ] ADMISSION DATE: 06/21/2025 DISCHARGE DATE: 06/25/2025 DISPOSITION: Home CONDITION: Stable ETL PROGRAMMER(S): Infectious Disease women specialist's FOLLOW UP APPOINTMENT(S): PCP 2-3 days, women specialist's one-week PROCEDURES: None IMAGING (S) report attached to summary : MICROBIOLOGY: report attached to summary; blood cultures urine cultures ACTIVITY: Ad raysa HOME MEDICATIONS home medications remain the same CHANGES ON HOME MEDICATIONS none NEW MEDICATIONS oral antibiotics levofloxacin 750 mg p.o. daily for 10 days TEACHING: Advised patient to complete full cycle of antibiotics as directed side effects adverse reaction of medication discussed. Emergency instructions: The patient was instructed to present to the nearest Emergency Department or call 911 should their symptoms return or worsen. Discharge Instructions: RUN DATE: 06/24/25 [facility] RUN TIME: 3[address] [place] [address] Department of Laboratories [facility] # [id number] Plate Take Out Worker: Eduardo Jimenez DO Specimen Report -- PATIENT: FLAVIO FRANCISCO ACCT: [id number] LOC: [facility] U: [id number] AGE/SX: 65/M ROOM: 316 RE06/21/[address]: LIANNA GILLIAM MD : 1960 BED: 1 DIS: STATUS: ADM IN TLOC: SPEC: [id number] PRETTY: 06/21/25 STATUS: VILMA REQ: [id number] RECD: 06/21/[address] [facility] [address]: BILL PARADA SOURCE: [facility] ENTR: 06/22/25-[address]: ERNESTO HEATON MD SPDESC: CLEAN CAT NONE ORDERED: AERO ID & SENS Procedure Result [place] Date-Time -- AEROBIC ID & SENSITIVITIES Final 06/24/25-0649 MRL COLONY DESCRIPTION: DAY 1: COLONY COUNT: 10,000 - 20,000 CFU/ML GRAM NEGATIVE RODS IDENTIFICATION AND SENSITIVITY TO FOLLOW ESCHERICHIA COLI E COLI M.I.C. RX --------- ---- AMPICILLIN >16 R AZTREONAM <=4 S CEFAZOLIN 8 R CEFTAZIDIME/AVIBACTAM <=8 S CEFTRIAXONE <=1 S GENTAMICIN <=2 S LEVOFLOXACIN <=0.5 S NITROFURANTOIN <=32 S MEROPENEM <=1 S PIPERACILLIN/TAZOBACTAM <=8 S TRIMETHOPRIM/SUFLAMETHOXAZOLE >2/38 R @ [facility] Test Performed at: [facility] [address], [place], [place] Medical Point Of Sale Associate: Rodolfo Clark D.O. RUN DATE: 06/24/25 [facility] [address] RUN TIME: [address] [address], [place] [address] Department of Laboratories CLIA # [id number] Plate Take Out Worker: Eduardo Jimenez DO Specimen Report PATIENT: FLAVIO FRANCISCO ACCT: [id number] LOC: [facility] U: [id number] AGE/SX: 65/M ROOM: [facility] RE06/21/[address]: LIANNA GILLIAM MD : 1960 BED: 1 DIS: STATUS: ADM IN TLOC: SPEC: [id number] PRETTY: 06/21/25 STATUS: RES REQ: [id number] RECD: 06/21/25-[address]: BILL PARADA SOURCE: BLOOD ENTR: 06/21/25-2122 OTHR WALKER: NONE SPDESC: SELF,REFERRAL ORDERED: BLOOD CULTURE COMMENTS: What is the Source? BLOOD Procedure Result [place] Date-Time BLOOD CULT Preliminary 06/24/25-2335 NO GROWTH AFTER 3 DAYS RUN DATE: 06/24/25 [facility] RUN TIME: [address] [address], [place] [address] Department of Laboratories [place] # [id number] Plate Take Out Worker: Eduardo Jimenez DO Specimen Report PATIENT: FLAVIO FRANCISCOS ACCT: [id number] LOC: [facility] U: [id number] AGE/SX: 65/M ROOM: [facility] RE06/21/[address]: LIANNA GILLIAM MD : 1960 BED: 1 DIS: STATUS: ADM IN TLOC: ------- ----- SPEC: [id number] PRETTY: 06/21/25 STATUS: RES REQ: [id number] RECD: 06/21/[address]: BILL PARADA SOURCE: BLOOD ENTR: 06/21/25-[address]: GERMAN SPDESC: SELF,REFERRAL ORDERED: BLOOD CULTURE COMMENTS: What is the Source? BLOOD Procedure Result [place] Date-Time BLOOD CULT Preliminary 06/24/25-2335 NO GROWTH AFTER 3 DAYS - RUN DATE: 06/24/25 [facility] RUN TIME: [address] [address], [place] [address] Department of Laboratories CLIA # [id number] Plate Take Out Worker: Eduardo Jimenez DO Specimen Report PATIENT: FLAVIO FRANCISCO ACCT: [id number] LOC: [facility] U: [id number] AGE/SX: 65/M ROOM: [facility] RE06/21/[address]: LIANNA GILLIAM MD : 1960 BED: 1 DIS: STATUS: ADM IN TLOC: SPEC: [id number] PRETTY: 06/21/25 STATUS: RES REQ: [id number] RECD: 06/21/25-[address] [facility] [address]: BILL PARADA SOURCE: BLOOD ENTR: 06/21/25-2122 ZACHERY WALKER: NONE SPDESC: SELF,REFERRAL ORDERED: BLOOD CULTURE COMMENTS: What is the Source? BLOOD Procedure Result [place] Date-Time BLOOD CULT Preliminary 06/24/25-2335 NO GROWTH AFTER 3 DAYS RUN DATE: 06/24/25 [facility] RUN TIME: [address] [address] Department of Laboratories CLIA # [id number] Plate Take Out Worker: Eduardo Jimneez DO Specimen Report PATIENT: FLAVIO FRANCISCO ACCT: [id number] LOC: [facility] U: [id number] AGE/SX: 65/M ROOM: 316 RE06/21/[address]: LIANNA GILLIAM MD : 1960 BED: 1 DIS: STATUS: ADM IN TLOC: SPEC: [id number] PRETTY: 06/21/25 STATUS: RES REQ: [id number] RECD: 06/21/[address]: BILL PARADA SOURCE: BLOOD ENTR: 06/21/[address]: GERMAN SPDESC: SELF,REFERRAL ORDERED: BLOOD CULTURE COMMENTS: What is the Source? BLOOD ------- ----- Procedure Result Kodi Date-Time BLOOD CULT Preliminary 06/24/25 NO GROWTH AFTER 3 DAYS END OF REPORT Home Medications: Reported Medications Amlodipine Besylate (Amlodipine Besylate) 10 Mg Tablet, 1 TAB PO DAILY for 30 Days, #30 TAB 0 Refills 06/22/25 Pravastatin Sodium (Pravastatin Sodium) 40 Mg Tablet, 1 TAB PO DAILY for 30 Days, #30 TAB 0 Refills 06/22/25 Tamsulosin HCl (Flomax) 0.4 Mg Cap.er.24h, 1 CAP PO DAILY for 30 Days, #30 CAP 0 Refills 06/22/25 Linagliptin (Tradjenta) 5 Mg Tablet, 1 TAB PO DAILY for 30 Days, #30 TAB 0 Refills 06/22/25 Lisinopril (Lisinopril) 20 Mg Tablet, 1 TAB PO DAILY for 30 Days, #30 TAB 0 Refills 06/22/25 Metformin HCl (Metformin HCl) 850 Mg Tablet, 1 TAB PO BID for 30 Days, #60 TAB 0 Refills 06/22/25 New Medications: Levofloxacin (Levofloxacin) 750 Mg Tablet 1 TAB PO DAILY for 10 Days, #10 TAB 0 Refills Tamsulosin HCl (Flomax) 0.4 Mg Cap.er.24h 1 CAP PO DAILY for 30 Days, #30 CAP 0 Refills Continued Medications: Amlodipine Besylate (Amlodipine Besylate) 10 Mg Tablet 1 TAB PO DAILY for 30 Days, #30 TAB 0 Refills Linagliptin (Tradjenta) 5 Mg Tablet 1 TAB PO DAILY for 30 Days, #30 TAB 0 Refills Lisinopril (Lisinopril) 20 Mg Tablet 1 TAB PO DAILY for 30 Days, #30 TAB 0 Refills Metformin HCl (Metformin HCl) 850 Mg Tablet 1 TAB PO BID for 30 Days, #60 TAB 0 Refills Pravastatin Sodium (Pravastatin Sodium) 40 Mg Tablet 1 TAB PO DAILY for 30 Days, #30 TAB 0 Refills Tamsulosin HCl (Flomax) 0.4 Mg Cap.er.24h 1 CAP PO DAILY for 30 Days, #30 CAP 0 Refills Time spent arranging discharge: 31-60 minutes ATTESTATION BY PHYSICIAN I have seen and examined the patient. I reviewed the documentation, medical decision making, and treatment plan as noted by the mid-level provider above. I agree with the findings and plan of care. LIANNA GILLIAM MD, [facility] Jun 25, 2025 12:45
--- NOTE | 2025-06-25 15:37 | NUR ---
DISCHARGE PIV DC'D PATIENT INFORMED TO FOLLOW UP WITH PRIMARY CARE PROVIDER AND EMPLOYEE TRAINING SPECIALIST DR. QURESHI. ALL QUESTIONS ANSWERED PRIOR TO DISCHARGE.
--- NOTE | 2025-06-25 16:56 | PN ---
INFECTIOUS DISEASE PROGRESS NOTE Date of Service: Jun 25, 2025 SUBJECTIVE: [ ] PHYSICAL EXAM EYES: Anicteric. Pupils equal and reactive. HENT: No oral thrush seen, moist Oral mucosa NECK: Supple, no JVD or thyromegaly. LUNGS: Good air entry. No rales, no rhonchi. CARDIOVASCULAR: S1, S2 regular. No murmur heard. ABDOMEN: Soft, non tender, bowel sounds present, no organomegaly CENTRAL NERVOUS SYSTEM: Awake, alert, oriented x 3. No focal deficits. SKIN: No rashes, no swelling. LYMPHATICS: No peripheral lymphadenopathy MUSCULOSKELETAL: No joint swelling, erythema or tenderness. EXTREMITIES: No cyanosis or clubbing BACK: No deformity, no pressure ulcer. GENITOURINARY: No dysuria or hematuria Vital Sign (Last 12 Hours) 06/25/25 06/25/25 06/25/25 07:30 08:00 12:00 Temp 98.1 98.1 Pulse 89 83 Resp 19 19 B/P (MAP) 111/67 131/71 Pulse Ox 97 97 95 O2 Delivery Room Air* Room Air Room Air O2 Flow Rate 0 FiO2 21 Intake & Output (last 24hrs) 06/24/25 06/24/25 06/25/25 15:00 23:00 07:00 Intake Total 850.0 ml 900.0 ml Output Total 200 ml 2760 ml Balance 650.0 ml -1860.0 ml LABS: Laboratory: Test 06/25/25 11:13 06/25/25 05:00 06/24/25 05:25 Range/Units Whole Blood Glucose 163 H 70-110 MG/DL White Blood Count 7.8 4.8-10.8 K/uL Red Blood Count 3.70 L 4.50-6.20 MIL/uL Hemoglobin 9.0 L 14.0-18.0 g/dL Hematocrit 27.5 L 42-54 % Mean Corpuscular Volume 74.3 L 79-99 fL Mean Corpuscular Hemoglobin 24.3 L 27.0-33.0 pg Mean Corpuscular Hemoglobin Concent 32.7 32.0-36.0 g/dL Red Cell Distribution Width 15.3 11.0-15.5 % Platelet Count 329 # 130-400 K/uL Mean Platelet Volume 9.4 7.5-10.5 fL Nucleated Red Blood Cells 0.0 0.0-0.19 % Reticulocyte Count (auto) 1.33597 0.42-2.23 % Immature Reticulocyte Fraction 29.20 H 0.18-0.48 % Sodium Level 137 136-145 mmol/L Potassium Level 4.3 3.5-5.1 mmol/L Chloride Level 101 101-111 mmol/L Carbon Dioxide Level 26 21-32 mmol/L Blood Urea Nitrogen 11 7-18 mg/dL Creatinine 1.6 H 0.5-1.3 mg/dL Glomerular Filtration Rate Calc 47 >90 mL/min Random Glucose 108 H 70-105 mg/dL Total Calcium 8.8 8.5-10.1 mg/dL Phosphorus Level 3.1 2.5-4.9 mg/dL Magnesium Level 1.90 1.80-2.40 mg/dL Iron Level 28 L 65-175 mcg/dL Total Iron Binding Capacity 296 250-450 mcg/dL Percent Iron Saturation 9.4 L 30-44 % Ferritin 64 30-400 ng/mL Total Bilirubin 0.3 # 0.2-1.0 mg/dL Aspartate Amino Transf (AST/SGOT) 25 10-37 U/L Alanine Aminotransferase (ALT/SGPT) 28 # 12-78 U/L Alkaline Phosphatase 67 50-136 U/L Total Protein 7.3 6.0-8.3 g/dL Albumin 3.0 L 3.5-5.0 g/dL Vitamin B12 Level 883 193-986 pg/mL Immature Granulocyte % (Auto) 0.4 0-1 % Neutrophils (%) (Auto) 67.6 40.0-77.0 % Lymphocytes (%) (Auto) 16.0 L 21.0-51.0 % Monocytes (%) (Auto) 12.6 3.0-13.0 % Eosinophils (%) (Auto) 3.1 0.0-8.0 % Basophils (%) (Auto) 0.3 0.0-5.0 % Neutrophils # (Auto) 6.3 1.8-7.7 K/uL Lymphocytes # (Auto) 1.5 1.0-4.8 K/uL Monocytes # (Auto) 1.2 H 0.1-1.0 K/uL Eosinophils # (Auto) 0.29 0.00-0.70 K/uL Basophils # (Auto) 0.03 0.00-0.20 K/uL Absolute Immature Granulocyte (auto 0.04 0-1 K/uL DIAGNOSTICS / RADIOLOGY: PATIENT: FLAVIO FRANCISCO ACCT: [id number] LOC: [facility] U: [id number] AGE/SX: 65/M ROOM: [facility] RE06/21/[address]: LIANNA GILLIAM MD : 1960 BED: 1 DIS: STATUS: ADM IN TLOC: SPEC: [id number] PRETTY: 06/21/25 STATUS: COMP REQ: [id number] RECD: 06/21/[address] [facility] [address]: BILL PARADA [facility] SOURCE: [facility] [place] ENTR: 06/22/[address]: ERNESTO HEATON MD SPDESC: CLEAN CAT NONE ORDERED: AERO ID & SENS Procedure Result [place] Date-Time AEROBIC ID & SENSITIVITIES Final 06/24/25-648 MRL COLONY DESCRIPTION: DAY 1: COLONY COUNT: 10,000 - 20,000 CFU/ML GRAM NEGATIVE RODS IDENTIFICATION AND SENSITIVITY TO FOLLOW ESCHERICHIA COLI E COLI M.I.C. RX --------- ---- AMPICILLIN >16 R AZTREONAM <=4 S CEFAZOLIN 8 R CEFTAZIDIME/AVIBACTAM <=8 S CEFTRIAXONE <=1 S GENTAMICIN <=2 S LEVOFLOXACIN <=0.5 S NITROFURANTOIN <=32 S MEROPENEM <=1 S PIPERACILLIN/TAZOBACTAM <=8 S TRIMETHOPRIM/SUFLAMETHOXAZOLE >2/38 R ASSESSMENT: Urinary tract infection with E coli. PLAN: Patient can be discharged on levofloxacin when ready to discharge. This case was reviewed and discussed with my supervising physician Dr. Simpson and the above assessment and plan was formulated and agreed upon. ATTESTATION BY PHYSICIAN I have seen and examined the patient. I reviewed the documentation, medical decision making, and treatment plan as noted by the mid-level provider above. I agree with the findings and plan of care. RUMA SIMPSON MD, MIRTA L [facility] Jun 25, 2025 16:56
== END 2025-06-25 16:15 | disposition home or self-care (01) | DRG 871 ==
LOC: EDH 21:10 → EDHIP 21:11 → 3CH 06-23 14:14
PROVIDERS: ADMIT Internal Medicine; ATTEND Internal Medicine
DX: A41.9 Sepsis, unspecified organism (principal); R65.21 Severe sepsis with septic shock; N17.9 Acute kidney failure, unspecified; N39.0 Urinary tract infection, site not specified; E87.20 Acidosis, unspecified; E87.1 Hypo-osmolality and hyponatremia; I10 Essential (primary) hypertension; E11.65 Type 2 diabetes mellitus with hyperglycemia; E87.8 Other disorders of electrolyte and fluid balance, not elsewhere classified; E78.5 Hyperlipidemia, unspecified; E83.42 Hypomagnesemia; B96.20 Unspecified Escherichia coli [E. coli] as the cause of diseases classified elsewhere; I27.20 Pulmonary hypertension, unspecified; D64.9 Anemia, unspecified; E66.9 Obesity, unspecified; Z51.5 Encounter for palliative care; Z79.84 Long term (current) use of oral hypoglycemic drugs; Z79.899 Other long term (current) drug therapy; Z87.442 Personal history of urinary calculi
CPT/HCPCS: 36415; 71045; 74176; 76770; 80048; 80053; 81001; 82550; 82570; 82607; 82728; 82948; 83036; 83605; 83735; 83935; 83970; 84100; 84145; 84300; 84484; 85025; 85027; 86140; 87040; 87086; 87186; 90732; 93005; 96374; 96375; 99291; G0378; J0696; J1644; J1815; J2270; J2405; J2543; J3475; J7030; J7120